=== PATIENT | female | born 1940 | race Caucasian/White ===

== ENCOUNTER 2016-11-20 12:25 | Inpatient (IN) | payer MEDICARE, OTHER ==
[~2016-11-20] VITALS: Ht 172.7 cm; Wt 79.5 kg
--- OUTSIDE RECORDS SUMMARY | 2016-11-20 12:29 | XMS REPORT ---
Author Author Corey Schaefer Organization [facility] Address [address] [place] [address] Care Team Providers Care Construction Supervisor Name Role Phone Corey Schaefer Unavailable [phone] PROBLEMS Type Condition ICD9-CM Code [id number] Code Onset Dates Condition Status SNOMED Code Problem Mitral Regurgitation 424.0 Active 99299477 Problem Hyperlipidemia 272.4 Active 91909085 Problem Aortic valve insufficiency I35.1 Active 98271309 Problem Coronary Artery Disease 414.01 Active 50374587 Problem Pacemaker Z95.0 Active 834791799 Problem Hypertension, Benign 401.1 Active 15762079 Problem Sick sinus syndrome I49.5 Active 44715002 Problem Mitral valve regurgitation I34.0 Active 28659721 Problem Pulmonary hypertension I27.2 Active 51639673 Problem Atrial fibrillation I48.91 Active 04240336 Problem Chest pain R07.9 Active 60732387 Problem Atrial fibrillation 427.31 Active 72296641 Problem Chest pain 786.50 Active 88871627 Problem Tricuspid valve disorders, 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 709387087 Problem CAD (coronary artery disease) I25.10 Active 04810986 Problem Hyperlipidemia E78.5 Active 42782812 Problem Tricuspid valve regurgitation, nonrheumatic I36.1 Active 530905877 Problem Hypertension I10 Active 17297417 Problem 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 204595902 Problem Sick Sinus Syndrome 427.81 Active 58479673 Problem Aortic Valve Insufficiency 424.1 Active 00742651 Problem Pulmonary Hypertension, Chronic, Unspecified 416.9 Active 89529316 Problem Diastolic CHF I50.30 Active 119677744 Problem Edema R60.9 Active 35652779 Problem Edema, Lower Extremity Edema 782.3 Active 887906058 Problem CHF, Diastolic Heart Failure, Unspecified 428.30 Active 016278820 ALLERGIES Unknown Allergies SOCIAL HISTORY No smoking Hx information available PLAN OF CARE VITAL SIGNS MEDICATIONS Unknown Medications RESULTS No Results PROCEDURES No Known procedures IMMUNIZATIONS No Known Immunizations
--- OUTSIDE RECORDS SUMMARY | 2016-11-20 12:29 | XMS REPORT ---
Author Author Corey Schaefer Organization [employer] Address Unknown Phone Unavailable Care Team Providers Care Database Admin Name Role Phone Corey Schaefer CP Unavailable Allergies No Known Allergies Problems Problem Type Condition Code Onset Dates Condition Status Problem Mitral Regurgitation 424.0 Active Problem Edema R60.9 Active Problem Hyperlipidemia 272.4 Active Problem Aortic valve insufficiency I35.1 Active Problem Coronary Artery Disease 414.01 Active Problem Pacemaker Z95.0 Active Problem Pulmonary hypertension I27.2 Active Problem Sick sinus syndrome I49.5 Active Problem Chest pain R07.9 Active Problem Tricuspid valve regurgitation, nonrheumatic I36.1 Active Problem Chest pain 786.50 Active Problem Tricuspid valve disorders, 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 Problem Atrial fibrillation I48.91 Active Problem Hypertension, Benign 401.1 Active Problem Hyperlipidemia E78.5 Active Problem Mitral valve regurgitation I34.0 Active Problem Hypertension I10 Active Problem CAD (coronary artery disease) I25.10 Active Problem Pulmonary Hypertension, Chronic, Unspecified 416.9 Active Problem 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
--- OUTSIDE RECORDS SUMMARY | 2016-11-20 12:29 | XMS REPORT ---
Author Author Corey Schaefer Organization [employer] Address Unknown Phone Unavailable Care Team Providers Care Soccer Coach Name Role Phone Corey Schaefer CP Unavailable [...] Edema, Lower Extremity Edema 782.3 Active Medications Medication Code System Code Instructions Start Date End Date Status Dosage Furosemide [facility] [address]-02 80 MG Orally Twice a day 1 tablet Results No Known Results Summary Purpose [employer]ClinicalWorks Submission
--- OUTSIDE RECORDS SUMMARY | 2016-11-20 12:29 | XMS REPORT | Summary of Care ---
Author Author Mary Small D.O. Organization Unknown Address [address], [place] [address] Phone Unavailable Care Team Providers Care Critical Power Install Technician Name Role Phone Mary Small D.O. Unavailable Unavailable Unavailable Unavailable Functional Status Functional Status Health Issues* Name Dates Details Functional status health issues are not documented Status: Cognitive Status Health Issues* Name Dates Details Cognitive status health issues are not documented Status: Problems Name Dates Details Acute bronchitis (466.0, J20.9) Status: Active Medications Name Dates Details Guaifenesin-Codeine 100-10 MG/5ML Oral Syrup TAKE 1 TEASPOONFUL EVERY 4 TO 6 HOURS NEEDED FOR COUGH. Quantity: 1 Mary Small.Kimberly.* Started 20-Sep-2014 [id number] ML Bottle PredniSONE 10 MG Oral Tablet TAKE 6 TABLETS TODAY, THEN DECREASE BY 1 TABLET EACH DAY UNTIL GONE. * Quantity: 21 Refills: 0 Mary Small.Kimberly.* Started 20-Sep-2014 ActiveDoxycycline Monohydrate 100 MG Oral Tablet TAKE 1 TABLET EVERY 12 HOURS DAILY. * Quantity: 14 Refills: 0 Mary Small.Kimberly.* Started 20-Sep-2014 Active Allergies and Adverse Reactions Name Dates Details Allergy history not documented Status: Procedures Procedure Dates Details Procedures not documented Immunization Name Dates Details Immunizations not documented Social History Smoking Status* Unknown if ever smoked Vital Signs Date Test Result Details 20-Sep-2014 11:21 Temperature 97.6 f Status: Weight 146.2 lb Status: Results Date Description Value Details Results not documented Plan of Care Planned Observations* Name Dates Details Planned Goals not documented Goal Instructions * Instructions not documented Encounters Appointment; Mary Small Encounter Diagnosis: Problem not documented On 20-Sep-2014 11:20
--- OUTSIDE RECORDS SUMMARY | 2016-11-20 12:29 | XMS REPORT ---
Author Author Corey Schaefer [facility] Address Unknown Phone Unavailable Care Team Providers Care Composite Boat Builder Name Role Phone Corey Schaefer CP Unavailable Allergies, Adverse Reactions, Alerts Substance Reaction Event Type IV dye Info Not Available Drug Allergy Problems Problem Type Condition Code Onset Dates Condition Status Assessment Diastolic CHF I50.30 Active Assessment Edema R60.9 Active Assessment Hyperlipidemia E78.5 Active Assessment Pacemaker Z95.0 Active Assessment Mitral valve regurgitation I34.0 Active Assessment CAD (coronary artery disease) I25.10 Active Assessment Hypertension I10 Active Assessment Atrial fibrillation I48.91 Active Problem Mitral Regurgitation 424.0 Active Problem Edema [...] Instructions Start Date End Date Status Dosage Lipitor [facility] [address]-34 20 MG Orally Once a day 1 tablet Enalapril Maleate [facility] [address]-42 20 MG Orally Twice a day 1/2 tablet Hydralazine HCl [facility] [address]-52 25 MG Orally Twice a day 1 tablet Vitamin B-12 [facility] [address]-61 1000 MCG Orally Once a day 1 tablet Iron [facility] [address]87[address]990 325 (65 Fe) MG Orally Once a day 1 tablet Multivitamins [facility] [address]32 Orally Once a day 1 tablet Aspirin [facility] [address]-61 81mg Orally Once a day 1 tablet Coreg [facility] [address]-42 25 MG Orally Twice a day Mar 18, 2014 1 tablet with food Xarelto [facility] [address]-32 20 MG Orally Once a day 1 tablet with the evening meal Claritin [facility] [address]-68 10 MG Orally Once a day 1 tablet HydrOXYzine HCl [facility] [address]-81 25 MG Orally every 8 hrs 1 tablet as needed Furosemide [facility] [address]-40 40 MG Orally Twice a day Jul 07, 2015 1 tablet Potassium Chloride ER [facility] [address]-34 20 MEQ Orally Three times a day 1 tablet Amiodarone HCl [facility] [address]-10 200 MG Orally Twice a day x 1 week, then 1 po daily 1 tablet Procedures Procedure Coding System Code Date Office Visit, Est Pt., Level 3 CPT-4 13610 Aug 03, 2015 Ofc Program PM Dual, Staff CPT-4 56569 Aug 03, 2015 Vital Signs Date/Time: Aug 03, 2015 BMI 21.38 Index Weight 149 lbs Height 70 in Cardiac Monitoring Heart Rate 96 /min Oximetry 96 % Blood Pressure Diastolic 80 mm Hg Blood Pressure Systolic 96 mm Hg Results No Known Results Summary Purpose eClinicalWorks Submission
--- OUTSIDE RECORDS SUMMARY | 2016-11-20 12:29 | XMS REPORT ---
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 Problem Edema, Lower Extremity Edema 782.3 Active Assessment CHF, Diastolic Heart Failure, Unspecified 428.30 Active Problem Sick Sinus Syndrome 427.81 Active Problem CHF, Diastolic Heart Failure, Unspecified 428.30 Active Problem Aortic Valve Insufficiency 424.1 Active Problem Atrial fibrillation 427.31 Active Problem 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 Problem Pulmonary Hypertension, Chronic, Unspecified 416.9 Active Assessment Sick Sinus Syndrome 427.81 Active Assessment Hyperlipidemia 272.4 Active Assessment Edema, Lower Extremity Edema 782.3 Active Assessment 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 Assessment Atrial fibrillation 427.31 Active Problem Mitral Regurgitation 424.0 Active Assessment Coronary Artery Disease 414.01 Active Problem Hyperlipidemia 272.4 Active Assessment Hypertension, Benign 401.1 Active Problem Coronary Artery Disease 414.01 Active Medications Medication Code System Code Instructions Start Date End Date Status Dosage Coreg [facility] [address]-39 25 MG Orally Twice a day Mar 18, 2014 1 tablet with food Aspirin [facility] [address]-12 81mg Orally Once a day 1 tablet Demadex [facility] [address]-56 20 MG Orally Once a day Aug 06, 2014 2 tablets Vitamin C [facility] 147[address]96 500 MG Orally Once a day 1 tablet Lipitor [facility] [address]-08 20 MG Orally Once a day 1 tablet Xarelto [facility] [address]-15 20 MG Orally Once a day 1 tablet with the evening meal Enalapril Maleate [facility] [address]-20 20 MG Orally Twice a day 1 tablet Hydralazine HCl [facility] [address]-30 25 MG Orally Twice a day 1 tablet Multivitamins [facility] 78726-[address]91 Orally Once a day 1 tablet HydrOXYzine HCl [facility] [address]-97 25 MG Orally every 8 hrs 1 tablet as needed Procedures Procedure Coding System Code Date Office Visit, Est Pt., Level 4 CPT-4 81206 Mar 23, 2015 Ofc Program PM Dual, Staff CPT-4 22356 Mar 23, 2015 Vital Signs Date/Time: Mar 23, 2015 BMI 23.39 Index Weight 163 lbs Height 70 in Cardiac Monitoring Heart Rate 89 /min Oximetry 94% % Blood Pressure Diastolic 68 mm Hg Blood Pressure Systolic 112 mm Hg Results No Known Results Summary Purpose eClinicalWorks Submission
--- OUTSIDE RECORDS SUMMARY | 2016-11-20 12:29 | XMS REPORT ---
Author Author Corey Schaefer Organization [employer] Address Unknown Phone Unavailable Care Team Providers Care Metal Sash Setter Name Role Phone Corey Schaefer CP Unavailable [...]
--- OUTSIDE RECORDS SUMMARY | 2016-11-20 12:29 | XMS REPORT | Referral Summary ---
Author Author [facility] Organization [facility] Address Unknown Phone Unavailable Care Team Providers Care Flat Knitter Helper Name Role Phone Kelly Marshall Primary Care Physician [phone] Encounter VC Date(s): 09/03/15 - 09/03/15 [facility] [address] [place] [address] Discharge Diagnosis: Head contusion Discharge Diagnosis: Rib fracture Discharge Diagnosis: Shoulder injury Discharge Disposition: -Home or Self Care Attending Physician: Ancelmo Lerma MD Admitting Physician: Ancelmo Lerma MD Vital Signs Most recent to 1 oldest [Reference Range]: Temperature Oral 36.6 degC [35.8-37.3 degC] (09/03/15 10:37 AM) Apical Heart Rate 85 bpm [60-100 bpm] (09/03/15 10:37 AM) Respiratory Rate 22 br/min [14-20 br/min] *HI* (09/03/15 10:37 AM) Blood Pressure 144/94 mmHg [90-140/60-90 mmHg] *HI* (09/03/15 10:37 AM) SpO2 97 % (09/03/15 10:37 AM) Problem List Condition Effective Dates Status Health Status Informant Atrial Active patient fibrillation(Confirm ed) Pacemaker(Confirmed) Active patient Hypertension(Confirm Active patient ed) Allergies, Adverse Reactions, Alerts Substance Reaction Severity Status Bumex Itching Active iodine Tongue swelling Active Medications atorvastatin 20 mg oral tablet 0 Refill(s) Start Date: 09/03/15 Status: Ordered carvedilol 25 mg oral tablet 0 Refill(s) Start Date: 09/03/15 Status: Ordered enalapril 20 mg oral tablet 0 Refill(s) Start Date: 09/03/15 Status: Ordered furosemide 80 mg oral tablet 0 Refill(s) Start Date: 09/03/15 Status: Ordered Percocet 5/325 oral tablet 1 tabs, Oral, q6hr, as needed for pain, # 30 tabs, 0 Refill(s) Start Date: 09/03/15 Status: Ordered Xarelto 20 mg oral tablet 20 mg 1 tabs, Oral, qPM, # 30 tabs, 0 Refill(s) Start Date: 09/03/15 Status: Ordered Xarelto 20 mg oral tablet 20 mg 1 tabs, Oral, qPM, # 30 tabs, 0 Refill(s) Start Date: 09/03/15 Status: Ordered Results No data available for this section Immunizations Vaccine Date Refusal Reason tetanus/diphth/pertuss (Tdap) adult/adol 09/03/15 Procedures No data available for this section Social History Social History Type Response Smoking Status Never smoker Assessment and Plan No data available for this section
--- OUTSIDE RECORDS SUMMARY | 2016-11-20 12:29 | XMS REPORT ---
Author Author Corey Schaefer Organization [employer] Address Unknown Phone Unavailable Care Team Providers Care Printing Specialist Name Role Phone Corey Schaefer CP Unavailable [...] Start Date End Date Status Dosage Furosemide [facility] [id number] 80 Orally Twice a day 1 tablet Results No Known Results Summary Purpose eClinicalWorks Submission
--- OUTSIDE RECORDS SUMMARY | 2016-11-20 12:29 | XMS REPORT ---
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 Problem Edema, Lower Extremity Edema 782.3 Active Problem Sick Sinus Syndrome 427.81 Active Problem CHF, Diastolic Heart Failure, Unspecified 428.30 Active Problem Aortic Valve Insufficiency 424.1 Active Problem Atrial fibrillation 427.31 Active Problem 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 Problem Pulmonary Hypertension, Chronic, Unspecified 416.9 Active Assessment 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 Assessment CHF, Diastolic Heart Failure, Unspecified 428.30 Active Problem Mitral Regurgitation 424.0 Active Assessment Aortic Valve Insufficiency 424.1 Active Problem Hyperlipidemia 272.4 Active Assessment Edema, Lower Extremity Edema 782.3 Active Problem Coronary Artery Disease 414.01 Active Medications Medication Code System Code Instructions Start Date End Date Status Dosage Coreg [facility] [address]-46 25 MG Orally Twice a day Mar 18, 2014 1 tablet with food Multivitamins [facility] [address] Orally Once a day 1 tablet Vitamin B-12 [facility] [address]-63 1000 MCG Orally Once a day 1 tablet Xarelto [facility] [address]-06 20 MG Orally Once a day 1 tablet with the evening meal Enalapril Maleate [facility] [address]-47 20 MG Orally Twice a day 1 tablet Furosemide [facility] [address]-37 80 MG Orally Twice a day Jul 07, 2015 1 tablet Aspirin [facility] [address]-09 81mg Orally Once a day 1 tablet Lipitor [facility] [address]-95 20 MG Orally Once a day 1 tablet HydrOXYzine HCl [facility] [address]-42 25 MG Orally every 8 hrs 1 tablet as needed Procedures Procedure Coding System Code Date Office Visit, Est Pt., Level 3 CPT-4 83333 Jul 07, 2015 Ofc Program PM Dual, Staff CPT-4 86659 Jul 07, 2015 Vital Signs Date/Time: Jul 07, 2015 BMI 23.96 Index Weight 167 lbs Height 70 in Cardiac Monitoring Heart Rate 92 /min Oximetry 98% % Blood Pressure Diastolic 80 mm Hg Blood Pressure Systolic 122 mm Hg Results No Known Results Summary Purpose [employer]ClinicalWorks Submission
--- OUTSIDE RECORDS SUMMARY | 2016-11-20 12:29 | XMS REPORT ---
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 Active Assessment Sick Sinus Syndrome 427.81 Active Assessment CHF, Diastolic Heart Failure, Unspecified 428.30 Active Assessment Atrial fibrillation 427.31 Active Problem Mitral Regurgitation 424.0 Active Assessment Coronary Artery Disease 414.01 Active Problem Hyperlipidemia 272.4 Active Assessment Hypertension, Benign 401.1 Active Problem Coronary Artery Disease 414.01 Active Medications Medication Code System Code Instructions Start Date End Date Status Dosage Vitamin B-12 [facility] [address]-39 1000 MCG Orally Once a day 1 tablet HydrOXYzine HCl [facility] [address]-35 25 MG Orally every 8 hrs 1 tablet as needed Aspirin [facility] [address]-74 81mg Orally Once a day 1 tablet Coreg [facility] [address]-16 25 MG Orally Twice a day Mar 18, 2014 1 tablet with food Bumetanide [facility] [address]-89 1 MG Orally Twice a day 2 tab in am, 1 tab in pm Multivitamins [facility] 42[address]-30587 Orally Once a day 1 tablet Lipitor [facility] [address]-70 20 MG Orally Once a day 1 tablet Xarelto [facility] [address]-83 20 MG Orally Once a day 1 tablet with the evening meal Enalapril Maleate [facility] [address]-95 20 MG Orally Twice a day 1 tablet Hydralazine HCl [facility] [address]-70 25 MG Orally Twice a day 1 tablet Vitamin C [facility] 28421-[address]27 500 MG Orally Once a day 1 tablet Procedures Procedure Coding System Code Date Office Visit, Est Pt., Level 4 CPT-4 91937 Apr 04, 2015 Vital Signs Date/Time: Apr 04, 2015 BMI 22.38 Index Weight 156 lbs Height 70 in Cardiac Monitoring Heart Rate 71 /min Oximetry 97% % Blood Pressure Diastolic 80 mm Hg Blood Pressure Systolic 112 mm Hg Results No Known Results Summary Purpose eClinicalWorks Submission
--- OUTSIDE RECORDS SUMMARY | 2016-11-20 12:29 | XMS REPORT | Referral Summary ---
Author Author [facility] Organization [facility] Address Unknown Phone Unavailable Care Team Providers Care Director Home Health Name Role Phone Kelly Marshall Primary Care Physician [phone] Encounter VC Date(s): 06/23/16 - 06/23/16 [facility] [address] [place] [address] Discharge Diagnosis: Foot sprain Discharge Disposition: 01-Home or Self Care Attending Physician: Maria Eugenia Borja MD Admitting Physician: Maria Eugenia Borja MD Vital Signs Most recent to 1 oldest [Reference Range]: Respiratory Rate 18 br/min [14-20 br/min] (06/23/16 10:16 AM) Problem List Condition Effective Dates Status Health Status Informant Atrial Active patient fibrillation(Confirm ed) Pacemaker(Confirmed) Active patient Hypertension(Confirm Active patient ed) Allergies, Adverse Reactions, Alerts Substance Reaction Severity Status Bumex Itching Active iodine Tongue swelling.... Active Medications atorvastatin 20 mg oral tablet [...]
--- OUTSIDE RECORDS SUMMARY | 2016-11-20 12:29 | XMS REPORT ---
Author Author Corey Schaefer Organization [employer] Address Unknown Phone Unavailable Care Team Providers Care Ethnic Studies Professor Name Role Phone Corey Schaefer CP Unavailable Allergies No Known Allergies Problems Problem Type Condition Code Onset Dates Condition Status Assessment Hypertension I10 Active Problem Mitral Regurgitation 424.0 Active Problem [...] Instructions Start Date End Date Status Dosage Enalapril Maleate [facility] [address]-37 20 MG Orally Twice a day 1 tablet Results No Known Results Summary Purpose [employer]ClinicalWorks Submission
[2016-11-20] MEDS ORDERED: ONDANSETRON 4mg/2ml INJECTION IV PRN (12:30)
[2016-11-20] MEDS ORDERED: OXYCODONE I.R. 5 MG TABLET PO PRN (12:30)
[2016-11-20] MEDS ORDERED: HYDROMORPHONE 2mg/ml INJECTION IV PRN (12:30)
--- NOTE | 2016-11-20 12:30 | NUR ---
ARRIVAL TO FLOOR PT ARRIVED TO THE FLOOR AT THIS TIME, VIA WHEELCHAIR. PT ALERT AND ORIENTED X3. ABLE TO TRANSFER SELF FROM WHEELCHAIR TO BED WITH 2 PERSON ASSIST. PT ACCOMPANIED BY HER , ANGÉLICA. PT REPORTS TAKING 2 PERCOCET 5-325MG AT 1115. WILL CONTINUE TO ADMIT AND MONITOR PT.
--- OUTSIDE RECORDS SUMMARY | 2016-11-20 12:30 | XMS REPORT | Summary of Care ---
Author Author Felipe MAYOSera Organization Unknown Address [address] [phone] Phone Unavailable Care Team Providers Care Painter Maintenance Name Role Phone Leonilaalma MARIA ESTHER Sera Unavailable Unavailable No Assigned PCP-Pt Confirmed PP Unavailable Unavailable Unavailable Functional Status Functional Status Health Issues* Name Dates Details Functional status health issues are not documented Status: Cognitive Status Health Issues* Name Dates Details Cognitive status health issues are not documented Status: Problems Name Dates Details Acute bronchitis (466.0, J20.9) Status: Active Acute upper respiratory infection (465.9, J06.9) Status: Active Medications Name Dates Details Azithromycin 500 MG Oral Tablet TAKE 1 TABLET DAILY. Quantity: 5 BenjiSera baez APRN* Started 04-Aug-2015 Ended 09-Aug-2015 ActiveAmiodarone HCl - 400 MG Oral Tablet TAKE TABLET Daily * Refills: 0 * Started 04-Aug-2015 ActiveAspirin 81 MG Oral Tablet TAKE 1 TABLET DAILY. * Refills: 0 * Started 04-Aug-2015 ActiveAtorvastatin Calcium 20 MG Oral Tablet TAKE 1 TABLET DAILY AT BEDTIME. * Refills: 0 * Started 04-Aug-2015 ActiveCarvedilol 25 MG Oral Tablet TAKE 1 TABLET TWICE DAILY WITH MEALS. * Refills: 0 * Started 04-Aug-2015 ActiveEnalapril Maleate 20 MG Oral Tablet TAKE 1 TABLET TWICE DAILY. * Refills: 0 * Started 04-Aug-2015 ActiveFurosemide 40 MG Oral Tablet TAKE 1 TABLET TWICE DAILY. * Refills: 0 * Started 04-Aug-2015 ActiveHydrOXYzine HCl - 25 MG Oral Tablet TAKE 1 TABLET Every 8 hours PRN * Refills: 0 * Started 04-Aug-2015 ActiveLoratadine 10 MG Oral Tablet TAKE 1 TABLET DAILY. * Refills: 0 * Started 04-Aug-2015 ActivePotassium Chloride ER 20 MEQ Oral Tablet Extended Release TAKE 1 TABLET 3 times daily * Refills: 0 * Started 04-Aug-2015 ActiveXarelto 20 MG Oral Tablet Take 1 tablet daily * Refills: 0 * Started 04-Aug-2015 Active Allergies and Adverse Reactions Name Dates Details Iodinated Contrast Media Status: Active Sulfa Drugs Status: Active Procedures Procedure Dates Details Procedures not documented Immunization Name Dates Details Immunizations not documented Family History Father* Name Dates Details Family history of abdominal aortic aneurysm (V17.49, Z82.49) Status: Active Social History Name Dates Details Smoking Status* Never smoker Vital Signs Date Test Result Details 04-Aug-2015 14:38 BP Systolic 117 mm[Hg] Status: BP Diastolic 70 mm[Hg] Status: Temperature 98.1 f Status: Heart Rate 100 /min Status: Weight 152 lb Status: O2 SAT 98 % Status: Results Date Description Value Details Results not documented Plan of Care Planned Observations* Name Dates Details Planned Goals not documented Goal Instructions * Instructions not documented Encounters Appointment; Sera Wang Encounter Diagnosis: Problem not documented On 04-Aug-2015 14:05 Appointment; Mary Small Encounter Diagnosis: Problem not documented On 20-Sep-2014 11:20
--- OUTSIDE RECORDS SUMMARY | 2016-11-20 12:30 | XMS REPORT ---
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 Name Role Phone Corey Schaefer CP Unavailable Allergies, Adverse Reactions, Alerts Substance Reaction Event Type IV dye Info Not Available Drug Allergy Problems Problem Type Condition Code Onset Dates Condition Status Assessment Diastolic CHF I50.30 Active Assessment Edema R60.9 Active Assessment Pacemaker Z95.0 Active Assessment CAD (coronary artery disease) I25.10 [...] Date End Date Status Dosage Vitamin B-12 [facility] [address]-30 1000 MCG Orally Once a day 1 tablet Enalapril Maleate [facility] [address]-77 20 MG Orally Twice a day 1 tablet Aspirin [facility] [address]-05 81mg Orally Once a day 1 tablet Multivitamins [facility] [address]7979[address] Orally Once a day 1 tablet HydrOXYzine HCl [facility] [address]-56 25 MG Orally every 8 hrs 1 tablet as needed Xarelto [facility] [address]-23 20 MG Orally Once a day 1 tablet with the evening meal Furosemide [facility] [address]-96 80 MG Orally Twice a day Jul 07, 2015 1 tablet Lipitor [facility] [address]-33 20 MG Orally Once a day 1 tablet Claritin [facility] [address]-03 10 MG Orally Once a day 1 tablet Coreg [facility] [address]-79 25 MG Orally Twice a day Mar 18, 2014 1 tablet with food Procedures Procedure Coding System Code Date Office Visit, Est Pt., Level 3 CPT-4 76858 Jul 14, 2015 Ofc Program PM Dual, Staff CPT-4 08588 Jul 14, 2015 Vital Signs Date/Time: Jul 14, 2015 BMI 23.96 Index Weight 167 lbs Height 70 in Cardiac Monitoring Heart Rate 93 /min Oximetry 98% % Blood Pressure Diastolic 68 mm Hg Blood Pressure Systolic 112 mm Hg Results No Known Results Summary Purpose eClinicalWorks Submission
--- OUTSIDE RECORDS SUMMARY | 2016-11-20 12:30 | XMS REPORT ---
Author Author Corey Schaefer Organization [employer] Address Unknown Phone Unavailable Care Team Providers Care Water Manager Name Role Phone Corey Schaefer CP Unavailable [...]
--- OUTSIDE RECORDS SUMMARY | 2016-11-20 12:30 | XMS REPORT ---
Author Author Corey Schaefer Organization [employer] Address Unknown Phone Unavailable Care Team Providers Care Jigger Crown Pouncing Machine Operator Name Role Phone Corey Schaefer CP Unavailable Allergies No Known Allergies Problems Problem Type Condition ICD-9 Code Onset [...] Pulmonary Hypertension, Chronic, Unspecified 416.9 Active Problem Mitral Regurgitation 424.0 Active Problem Hyperlipidemia 272.4 Active Problem Coronary Artery Disease 414.01 Active Medications No Known Medications Results No Known Results Summary Purpose eClinicalWorks Submission
[2016-11-20 12:44] VITALS: Ht 172.7 cm; Wt 79.5 kg
[2016-11-20 12:56] VITALS: BP 114/65; PULSE 72; RESP 18; TEMP 96.1; O2SAT 98
--- NOTE | 2016-11-20 13:08 | HPF ---
CHIEF COMPLAINT 1. Right distal radius fracture. 2. Right hip pain. HISTORY OF PRESENT ILLNESS Ms. Jacques is a very pleasant 76-year-old female seen today as a new patient for injuries she sustained on 11/17/2016. She had a fall at home. She was seen at [facility] on the . X-rays showed a comminuted intraarticular right distal radius fracture in satisfactory alignment. She was also complaining of right hip and groin pain. Pelvis x-rays were taken. The patient was told she had a hip contusion. She has continued to have severe pain in her right groin and hip. She did have preexisting pain in the right hip prior to her fall. She has also had moderate pain in the right wrist. She was placed in an ulnar-sided splint. She has iced a couple of times to her wrist. She has had difficulty ambulating and getting around. Her has poor health and back issues and is having difficulty getting her up and moving around as well. Pain is described as severe. It is sharp both in the wrist and the hip. It is worse with any movement. It is aggravated by weightbearing, walking. She denies numbness or tingling to the hand. Complains of weakness in the leg. Denies back pain. She has been taking oxycodone/APAP for pain at home. Complains of sensation of giving way in and weakness with walking and fear of falling. She does have atrial fibrillation and a pacemaker. She is on Xarelto for this, but did not take it last night. REVIEW OF SYSTEMS Constitutional: Negative for chills, fever, fatigue, malaise, weight loss. HEENT: Negative for headache, vertigo. Respiratory: Negative for cough, SOA, recent infections, wheezing. Cardiovascular: Negative for chest pain, palpitations, leg swelling, syncope. Gastrointestinal: Positive for constipation. Negative for abdominal pain, diarrhea, heartburn, nausea, vomiting. Skin: Negative for skin infections, rash. Neurological: Negative for paresthesia, seizures. Psychiatric: Negative for anxiety, depression. Hematologic/Lymphatic: Positive for easy bleeding and bruising. Musculoskeletal: Negative except as in HPI. PAST MEDICAL HISTORY A-Fib. Pacemaker status. Coronary artery disease requiring heart stenting. Hypertension. MEDICATIONS Xarelto. Vitamin B12. Oxycodone/APAP 5/325. Hydroxyzine. Furosemide. Enalapril. Carvedilol. Aspirin. Amiodarone. ALLERGIES No known drug allergies. SURGICAL HISTORY Right shoulder surgery. SOCIAL HISTORY The patient is a nonsmoker, nondrinker. Denies illicit drug use. FAMILY HISTORY Significant for mother and sister with breast cancer. Mother with hypertension. PHYSICAL EXAMINATION Height 5 feet 8 inches. Weight 160. Blood pressure 99/54. Pulse 74. Constitutional: Well developed, well-nourished. Psychiatric: Alert and oriented x 3, NAD, of normal mood and affect. Skin: No rash or abnormal lesions in bilateral affected extremities. Vascular: 2+ palpable pulses with brisk capillary refill all digits. Neuro: Normal sensation to light touch in bilateral affected extremities. MSK: Gait: Severely antalgic gait favoring the right side. She is primarily in a wheelchair. Affected extremities: Right lower and right upper. Inspection: Inspection of the patient's right wrist reveals moderate swelling and bruising. No skin laceration. Right hip and groin show no warmth, erythema or ecchymosis. Bruising over the lateral hip. Palpation: Tenderness over the greater trochanter and lateral hip. Also tenderness of the right side of the symphysis pubis. Wrist is tender, both the ulna and the distal radius. No hand or elbow tenderness. Range of motion: Normal knee range of motion. Hip range of motion is limited on internal rotation and this causes some discomfort in the groin. Wrist range of motion not assessed secondary to known fracture. 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 Normal right lower extremity strength. Contralateral Extremities: Complete examination was performed. Skin is intact. No swelling, no tenderness to palpation. Normal ROM and normal strength and stability were noted. IMAGING X-ray type: Two-view right wrist pre and post splint application. Pre splint application shows a comminuted distal radius fracture with intraarticular extension. There is dorsal comminution. She has mild loss of radial inclination and neutral volar tilt. Nondisplaced ulnar styloid fracture. Post splint application x-rays show similar with mildly improved reduction and position of dorsal comminuted fragments. Impression: Closed comminuted left distal radius fracture that is intraarticular with nondisplaced ulnar styloid fracture. X-ray type: Three-view pelvis. Interpretation: Three views of the pelvis were obtained. There is fracture of the superior and inferior pubic rami with minimal displacement. Note is made of moderate primary osteoarthritic change of the right hip with spurring, joint space narrowing and subchondral sclerosis. No evidence of femoral neck or intertrochanteric hip fracture. Impression: Closed right superior and inferior pubic rami fractures with moderate primary hip osteoarthritis. ASSESSMENT 1. Closed mildly displaced comminuted intraarticular distal radius fracture with nondisplaced ulnar styloid fracture. 1. Closed right superior and inferior pubic rami fracture. 2. Right primary hip osteoarthritis. PLAN I discussed the findings today with the patient regarding the diagnosis, imaging, history, and physical exam. The diagnosis was discussed utilizing models and diagrams. The natural history of the diagnosis was discussed. Options for treatment were reviewed. The patient is having a fair amount of difficulty getting around at home. Her is having difficulty helping her. She is in a fair amount of pain. I recommended admission at this time for pain control and beginning working with therapy for ambulation. She will be weightbearing as tolerated but will be nonweightbearing on the right upper extremity. Will okay the use of a platform walker. I want ice and elevation to the right wrist. Splint is not to be removed. Will plan to start oral pain medication with IV pain medication available. Will consult Medicine for evaluation and monitoring of her A-Fib, though it seems to be stable. Diet will be as tolerated and normal. Will have Care Coordination see her to discuss possibility of Inpatient Rehab or the like. Will plan to repeat x-rays of the wrist in one week. If any further displacement, consideration would be made for ORIF. Will resume home medications during admission as well. ANDREA
[2016-11-20 13:16] LABS: BASOPHILS % (AUTO) 0.7 % (0-2); EOSINOPHILS # (AUTO) 0.1 T/MM3 (0-0.5); EOSINOPHILS % (AUTO) 3.1 % (0-4); HCT - HEMATOCRIT 35.6 % (36-46); HGB - HEMOGLOBIN 11.3 GM/DL (12-16); LYMPHOCYTES # (AUTO) 1.2 T/MM3 (1-4.8); LYMPHOCYTES % (AUTO) 25.8 % (23-45); MEAN CORPUSCULAR HGB 27.6 UUG (26-34); MEAN CORPUSCULAR HGB CONC(MCHC 31.7 GM/DL (31-37); MEAN PLATELET VOLUME 10.4 UM3 (9.4-12.4); MONOCYTES # (AUTO) 0.6 T/MM3 (0-0.8); MONOCYTES % (AUTO) 12.1 % (0-9.0); NEUTROPHILS #(AUTO)-ABSOLUTE 2.7 T/MM3 (1.8-7.7); NEUTROPHILS % (AUTO) 58.3 % (33-66); RED BLOOD COUNT 4.09 M/MM3 (4.00-5.20); WBC - WHITE BLOOD COUNT 4.5 T/MM3 (4.5-11.0)
[2016-11-20 13:28] LABS: ALBUMIN/GLOBULIN RATIO 1.3 RATIO (1.1-2.2); ALKALINE PHOSPHATASE 177 U/L (38-126); ALT (SGPT) 26 U/L (9-52); ANION GAP 15 MEQ/L (5-15); AST (SGOT) 32 U/L (14-36); BUN/CREATININE RATIO 24 RATIO (6-26); CALCIUM 9.1 MG/DL (8.4-10.2); CHLORIDE 98 MEQ/L (98-107); CO2 - CARBON DIOXIDE 30 MEQ/L (22-30); CREATININE 1.6 MG/DL (0.7-1.2); GLOMERULAR FILTRATION RATE 31; GLUCOSE 97 MG/DL (65-110); POTASSIUM 4.5 MEQ/L (3.6-5); SODIUM 143 MEQ/L (134-144); TOTAL PROTEIN 7.1 G/DL (6.3-8.2)
[2016-11-20] MEDS: NORMAL SALINE 1,000 ML IV SCH (13:55)
[2016-11-20] MEDS ORDERED: RIVA20TA PO (14:04)
[2016-11-20] MEDS ORDERED: AMIO200T2 PO (14:09)
[2016-11-20] MEDS ORDERED: ENAL20TA PO (14:09)
[2016-11-20] MEDS ORDERED: FURO80TA3 PO (14:09)
[2016-11-20] MEDS ORDERED: ASPI-557 PO (14:09)
[2016-11-20] MEDS ORDERED: HYDR25TA85 PO (14:09)
[2016-11-20] MEDS ORDERED: CYAN50003 PO (14:09)
[2016-11-20] MEDS ORDERED: OXYC-541 PO (14:09)
[2016-11-20] MEDS ORDERED: CARV25TA2 PO (14:09)
[2016-11-20] MEDS ORDERED: ZINC50TA39 PO (14:18)
[2016-11-20] MEDS ORDERED: CHOL500051 PO (14:18)
[2016-11-20 14:50] VITALS: RESP 18
[2016-11-20] MEDS: ACETAMINOPHEN 325 MG TABLET PO SCH ×2 (15:22→21:21)
--- NOTE | 2016-11-20 15:52 | CONSPD ---
Consultation Info Date DATE: 11/20/16 TIME: 15:[address] Cotton Reason for Consultation: Bone health evaluation Impression/Recommendation Impression/Recommendation: (1) Osteopenia Status: Chronic Recommendation: Start calcium. will check with Dr Marshall about her DEXA scan Ortho HPI HPI Elements HPI Fell at home while taking care of cats. Also fractured ribs about a year ago doing the same thing Past Medical History Adult Current Medications Amiodarone HCl (Amiodarone HCl) 200 Mg Tablet, 200 MG PO DAILY, (Reported) Last Taken: Unknown Dose on 11/20/16 0800 Aspirin (Aspir 81) 81 Mg Tablet.dr , 1 TAB PO DAILY, (Reported) Last Taken: Unknown Dose on 11/20/16 0800 Carvedilol (Carvedilol) 25 Mg Tablet, 1 TAB PO BID, (Reported) BEST WITH FOOD. Last Taken: Unknown Dose on 11/20/16 0800 Cholecalciferol (Vitamin D3) ( Vitamin D) 5,000 Unit Capsule, 1 TAB PO DAILY, (Reported) Last Taken: Unknown Dose on 11/19/16 0800 Cyanocobalamin (Vitamin B-12) ( Vitamin B-12) 5,000 Mcg Tab.rapdis, 10 TAB PO DAILY, (Reported) Last Taken: Unknown Dose on 11/20/16 0800 Enalapril Maleate (Enalapril Maleate) 20 Mg Tablet, 1 TAB PO BID, (Reported) Last Taken: Unknown Dose on 11/20/16 0800 Furosemide (Furosemide) 80 Mg Tablet, 1 TAB PO BID, (Reported) Last Taken: Unknown Dose on 11/20/16 0800 Hydroxyzine HCl (Hydroxyzine HCl) 25 Mg Tablet, 1 TAB PO PM, (Reported) Last Taken: Unknown Dose on 11/19/16 1700 Oxycodone HCl/Acetaminophen ( Oxycodone-Acetaminophen 5-325) 5-325 Tablet, 1-2 TAB PO Q4H PRN for PAIN, ( Reported) Last Taken: Unknown Dose on 11/20/16 1115 Rivaroxaban (Xarelto) 20 Mg Tablet , 1 TAB PO DAILY, (Reported) Last Taken: Unknown Dose on 11/18/16 2200 Zinc (Zinc) 50 Mg Tablet, 50 MG PO DAILY, (Reported) Last Taken: Unknown Dose on 11/20/16 0800 Allergies Allergies: Coded Allergies: No Known Drug Allergies (Verified Allergy, Unknown, 11/20/16) Vaccines No Social History Advance Directives: No DPOA for Healthcare Only Physical Exam Laboratory Laboratory Tests Test 11/20/16 13:01 White Blood Count 4.5T/MM3 Red Blood Count 4.09M/MM3 Hemoglobin 11.3GM/DL Hematocrit 35.6% Mean Corpuscular Volume 87.0UM3 Mean Corpuscular Hemoglobin 27.6UUG Mean Corpuscular Hemoglobin Concent 31.7GM/DL RDW Standard Deviation 41.9FL Platelet Count 200T/MM3 Mean Platelet Volume 10.4UM3 Immature Granulocyte % (Auto) 0.0% Neutrophils (%) (Auto) 58.3% Lymphocytes (%) (Auto) 25.8% Monocytes (%) (Auto) 12.1% Eosinophils (%) (Auto) 3.1% Basophils (%) (Auto) 0.7% Absolute Immature Granulocyte (auto 0.00T/MM3 Absolute Neutrophils (auto) 2.7T/MM3 Absolute Lymphocytes (auto) 1.2T/MM3 Absolute Monocytes (auto) 0.6T/MM3 Absolute Eosinophils (auto) 0.1T/MM3 Absolute Basophils (auto) 0.0T/MM3 Turbidity < 20 Sodium Level 143MEQ/L Potassium Level 4.5MEQ/L Chloride Level 98MEQ/L Carbon Dioxide Level 30MEQ/L Anion Gap 15MEQ/L Blood Urea Nitrogen 38.0MG/DL Creatinine 1.6MG/DL Glomerular Filtration Rate Calc 31 BUN/Creatinine Ratio 24RATIO Glucose Level 97MG/DL Calculated Osmolality 284MOSM/KG Calcium Level 9.1MG/DL Total Bilirubin 1.80MG/DL Icterus Index < 2 Aspartate Amino Transf (AST/SGOT) 32U/L Alanine Aminotransferase (ALT/SGPT) 26U/L Alkaline Phosphatase 177U/L Total Protein 7.1G/DL Albumin 4.0G/DL Globulin 3.1G/DL Albumin/Globulin Ratio 1.3RATIO 25-Hydroxy Vitamin D Total Pending 25-Hydroxy Vitamin D2 Pending 25-Hydroxy Vitamin D3 Pending Chemistry Specimen Hemolysis < 15 Case Report- BMD Demographics Date of Initial Screening: Nov 20, 2016 Age 76 Gender: Female Race White Height (Feet): 5 Height (Inches): 8.00 Weight (Kilograms): 76.800 Site of Current Fracture Upper Limb: wrist (distal radius) Axial: pelvic ring Fracture History History of fracture age 51 or: Yes Fracture History: ribs Age at time of fractures 75 Risk Factors History of Rheumatoid Arthriti: No Secondary Osteoporosis d/t con: No Medication Use Nutritional Supplements: vitamin d Treatment/Counseling Calcium 1200 mg/day (in divide: yes Vitamin D at least 800-1000 IU: yes Regular Weight Bearing and Mus: yes Fall Prevention: yes Smoking Cessation: yes Alcohol Comsumption (no more t: yes Pharmacologic Treatment Recomend Pharmacologic Therapy: No Therapy not recommended due to: bone health assessment ongoing Pharmacologic Therapy Initiate: No Reason Not Initiating Therapy: tx planned for near future Bone Mineral Density Testing Was BMD Testing Recommended?: No BMD Testing: N/A(BMD performed within past 2yrs) Written Communication Was pt provided with a letter: Yes Letter Provided to pts PCP?: Yes Discharge Status: routine discharge to home Additional Information Comments Patient had DEXA by Dr Marshall within the recent past. Will check and see if I can get the results LANA RODRÍGUEZ MD Nov 20, 2016 15:50
[2016-11-20] MEDS ORDERED: METOCLOPRAMIDE 10mg/2ml INJECTION IV PRN (16:00)
[2016-11-20] MEDS ORDERED: MILK OF MAGNESIA 30 ML SUSP PO PRN (16:00)
[2016-11-20] MEDS ORDERED: BISACODYL 10 MG SUPPOSITORY RECTALLY PRN (16:00)
[2016-11-20] MEDS ORDERED: ACETAMINOPHEN 325 MG TABLET PO PRN (16:00)
--- NOTE | 2016-11-20 16:11 | CONSPD ---
MILDREDDEMETRIO Rashida PIECE MAKER 11/20/16 1522: Consultation Info Date DATE: 11/20/16 TIME: 15:19 Date of Consultation: Nov 20, 2016 Attending Physician: Admitting - Dr. Cotton Hospitalist - Dr. Metcalf Reason for Consultation: Medical management - heart disease HPI - Adult Date DATE: 11/20/16 TIME: 15:19 General Chief Complaint: Right wrist fx and pelvic pain History of Present Illness Henna Jacques is a 76 year old woman who fell at home on 11/17/16. She states the sole of her shoe was caught on the patio, and she fell backwards onto her right hip and elbow. She hit her head on the patio but did not lose consciousness and never developed headache, visual changes, or nausea/vomiting to suggest concussion. She was evaluated at [facility] in [place], and dx with rigth wrist fx and hip contusion. A splint was applied to her right wrist and she was discharged home. She has been using a crutch to get around at home, but is weak and wobbly. Her right leg has been weak and she's had a terribly painful time bearing weight on her leg. Her 80-year old has been trying to help her but he has back problems so it has been very difficult for him. She' s been taking oxycodone which is making her very sleepy. She has also been constipated since starting her pain medication - last BM was 11/16/16. ROS was also positive for feeling chilly, but she thinks it's because she's become so sweaty from exertion and pain and as soon as she sits back down she becomes cool. She saw Dr. Cotton in f/u on 11/20/16 and x-rays were repeated. She was dx with right sided pelvic fx, and she was admitted to [facility]. The hospitalist service was consulted for mgt of her heart disease. Past Medical History Past Medical History Patient's Medical History: (1) CAD (coronary artery disease) (2) Atrial fibrillation (3) CHF (congestive heart failure) (4) HTN (hypertension) Surgical History Patient's Surgical History: PPM Heart catheterization with stent Ablation for A-fib - unsuccessfuly Left rotator cuff repair Current Medications Home Meds Reported Medications Zinc (Zinc) 50 Mg Tablet, 50 MG PO DAILY, TAB 11/20/16 Cholecalciferol (Vitamin D3) (Vitamin D) 5,000 Unit Capsule, 1 TAB PO DAILY 11/20/16 Amiodarone HCl (Amiodarone HCl) 200 Mg Tablet, 200 MG PO DAILY, TAB 11/20/16 Aspirin (Aspir 81) 81 Mg Tablet.dr, 1 TAB PO DAILY, #30 TAB 5 Refills 11/20/16 Carvedilol (Carvedilol) 25 Mg Tablet, 1 TAB PO BID, TAB BEST WITH FOOD. 11/20/16 Enalapril Maleate (Enalapril Maleate) 20 Mg Tablet, 1 TAB PO BID, TAB 11/20/16 Furosemide (Furosemide) 80 Mg Tablet, 1 TAB PO BID, #180 TAB 3 Refills 11/20/16 Hydroxyzine HCl (Hydroxyzine HCl) 25 Mg Tablet, 1 TAB PO PM, TAB 11/20/16 Oxycodone HCl/Acetaminophen (Oxycodone-Acetaminophen 5-325) 5-325 Tablet, 1-2 TAB PO Q4H Y for PAIN, TAB 11/20/16 Cyanocobalamin (Vitamin B-12) (Vitamin B-12) 5,000 Mcg Tab.rapdis, 1 TAB PO DAILY, TAB 11/20/16 Rivaroxaban (Xarelto) 20 Mg Tablet, 1 TAB PO DAILY, #30 TAB 11 Refills 11/20/16 Allergies: Coded Allergies: No Known Drug Allergies (Verified Allergy, Unknown, 11/20/16) Family History Family History: Mother - breast cancer, A-fib, & HTN Father - she doesn't know her biologic father Sister - breast cancer 5 grown children - 2 girls 3 boys, all healthy except one daughter had breast cancer Social History Smoking Status: Never smoker Substance Use Type: does not use Alcohol Intake: none Marital Status: (58 years in December 2016) Housing: house Current Occupational Status: retired 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 Farzad Marshall - PCP Dr. Schaefer - CV Review of Systems Constitutional: REPORTS: chills, dizziness (when she changes position), other ( sleepy), weakness, DENIES: fever Eyes Vision: DENIES: blurring, vision changes ENMT Sinuses: NOT FOUND: congestion, rhinorrhea Mouth/Throat: DENIES: change in swallowing Cardiovascular DENIES: chest pain, dyspnea on exertion Rhythm/Rate: irregular beat, palpitations Vascular: pedal edema (have been lately since she's been sleeping in the chair with her legs hanging down) Pulmonary Respiratory: DENIES: cough, dyspnea GI Upper Abdomen: nausea (after pain pills), DENIES: vomiting Lower Abdomen: constipation (no BM since Saturday ) General: DENIES: dysuria, frequency Musculoskeletal General: joint pain, see HPI Integumentary Skin: other (bruising to right wrist/forearm) Neurological General: DENIES: headache, seizures, syncope Psychiatric Psychiatric: DENIES: anxiety, depression Hematologic/Lymphatic easy bruising All Other Systems All Other Systems: Reviewed (remainder of 10-point ROS Neg.) Physical Exam General General Nourishment: well nourished, well developed, thin General Body Habitus: well groomed Vital Signs Vital Signs Date Time Temp Pulse Resp B/P Pulse Ox O2 Delivery O2 Flow Rate FiO2 11/20/16 14:50 18 11/20/16 12:56 96.1 72 114/65 98 Room Air Height (Feet): 5 Height (Inches): 8.00 Eyes Brief: FOUND: PERRL, NOT FOUND: scleral icterus ENMT Brief: FOUND: mucosa moist, NOT FOUND: pharnyx erythema Neck Brief: NOT FOUND: adenopathy, nuchal rigidity Respiratory Auscultation: FOUND: normal, NOT FOUND: rales, rhonchi, wheezes Cardiovascular Auscultation: FOUND: S1, S2, regular Murmur: FOUND: systolic Peripheral Pulses: 2+: Dorasalis Pedis (L), Dorsalis Pedis (R), Posterior Tibial (L), Posterior Tibial (R), Radial (L), Radial (R) Edema: 0: Anasarca, Arm (L), Face, Leg (L), Leg (R), 1+: Arm (R) Abdomen Inspection: NOT FOUND: distention Palpation: FOUND: soft, NOT FOUND: McBurney's point tender, Lee's sign, involuntary guarding, rebound, tender, voluntary guarding Auscultation: FOUND: normo active Lymphatic (brief) Lymphatic Brief: NOT FOUND: adenopathy Musculoskeletal (brief) Musculoskeletal Brief: FOUND: tenderness (tenderness proximal to right popliteal fossa) Comments splint applied to right wrist, fingers are ecchymotic and swollen known pelvic fractures on right Integumentary (brief) Integumentary Brief: FOUND: dry, pink, warm Integumentary General: FOUND: dry, warm Color: FOUND: pink Neurologic (brief) Neurological Brief: FOUND: cranial 2-12 intact (grossly), sensory (mild paresthesias to distal fingertips on right hand) Neurologic GCS Eye Opening: (4)Spontaneous GCS Verbal: (5)Oriented GCS Motor: (6)Obeys Commands RN Documented GCS Total: 15 Psychiatric (brief) FOUND: alert, attentive, normal affect, oriented Laboratory Laboratory Tests Test 11/20/16 13:01 White Blood Count 4.5T/MM3 Red Blood Count 4.09M/MM3 Hemoglobin 11.3GM/DL Hematocrit 35.6% Mean Corpuscular Volume 87.0UM3 Mean Corpuscular Hemoglobin 27.6UUG Mean Corpuscular Hemoglobin Concent 31.7GM/DL RDW Standard Deviation 41.9FL Platelet Count 200T/MM3 Mean Platelet Volume 10.4UM3 Immature Granulocyte % (Auto) 0.0% Neutrophils (%) (Auto) 58.3% Lymphocytes (%) (Auto) 25.8% Monocytes (%) (Auto) 12.1% Eosinophils (%) (Auto) 3.1% Basophils (%) (Auto) 0.7% Absolute Immature Granulocyte (auto 0.00T/MM3 Absolute Neutrophils (auto) 2.7T/MM3 Absolute Lymphocytes (auto) 1.2T/MM3 Absolute Monocytes (auto) 0.6T/MM3 Absolute Eosinophils (auto) 0.1T/MM3 Absolute Basophils (auto) 0.0T/MM3 Turbidity < 20 Sodium Level 143MEQ/L Potassium Level 4.5MEQ/L Chloride Level 98MEQ/L Carbon Dioxide Level 30MEQ/L Anion Gap 15MEQ/L Blood Urea Nitrogen 38.0MG/DL Creatinine 1.6MG/DL Glomerular Filtration Rate Calc 31 BUN/Creatinine Ratio 24RATIO Glucose Level 97MG/DL Calculated Osmolality 284MOSM/KG Calcium Level 9.1MG/DL Total Bilirubin 1.80MG/DL Icterus Index < 2 Aspartate Amino Transf (AST/SGOT) 32U/L Alanine Aminotransferase (ALT/SGPT) 26U/L Alkaline Phosphatase 177U/L Total Protein 7.1G/DL Albumin 4.0G/DL Globulin 3.1G/DL Albumin/Globulin Ratio 1.3RATIO Chemistry Specimen Hemolysis < 15 Impression/Recommendation Problems: (1) Distal radius fracture, right Status: Acute (2) Pelvis fracture, right Status: Acute (3) Atrial fibrillation Status: Chronic (4) CAD (coronary artery disease) Status: Chronic (5) HTN (hypertension) Status: Chronic Impression 1. Closed mildly displaced comminuted intraarticular distal radius fracture with nondisplaced ulnar styloid fracture. 1. Closed right superior and inferior pubic rami fracture. 2. Right primary hip osteoarthritis. Recommendation Agree with pain control per Dr. Cotton. Dx discussed with Dr. Cotton - hold Xarelto d/t small chance of wrist needing ORIF. OK to give a dose of Lovenox today. Hold ASA. Consult PT/OT. Suspect she will need rehab since she wasn't managing well at home. Elevated creatinine at 1.6 - unknown baseline. Lab records requested from PCP's office. Hold RANDELL inhibitor and Lasix for now. IVF have been ordered A-fib and hx of CHF - continue Coreg & amiodarone. Monitor for fluid overload. Tenderness proximal to right popliteal fossa - check venous u/s. Constipation - start bowel regimen. Thank you for this consult. RAUDEL METCALF MD 11/20/16 6414: Past Medical History Current Medications Home Meds Reported Medications Zinc (Zinc) 50 Mg Tablet, 50 MG PO DAILY, TAB 11/20/16 Cholecalciferol (Vitamin D3) (Vitamin D) 5,000 Unit Capsule, 1 TAB PO DAILY 11/20/16 Amiodarone HCl (Amiodarone HCl) 200 Mg Tablet, 200 MG PO DAILY, TAB 11/20/16 Aspirin (Aspir 81) 81 Mg Tablet., 1 TAB PO DAILY, #30 TAB 5 Refills 11/20/16 Carvedilol (Carvedilol) 25 Mg Tablet, 1 TAB PO BID, TAB BEST WITH FOOD. 11/20/16 Enalapril Maleate (Enalapril Maleate) 20 Mg Tablet, 1 TAB PO BID, TAB 11/20/16 Furosemide (Furosemide) 80 Mg Tablet, 1 TAB PO BID, #180 TAB 3 Refills 11/20/16 Hydroxyzine HCl (Hydroxyzine HCl) 25 Mg Tablet, 1 TAB PO PM, TAB 11/20/16 Oxycodone HCl/Acetaminophen (Oxycodone-Acetaminophen 5-325) 5-325 Tablet, 1-2 TAB PO Q4H Y for PAIN, TAB 11/20/16 Cyanocobalamin (Vitamin B-12) (Vitamin B-12) 5,000 Mcg Tab.rapdis, 1 TAB PO DAILY, TAB 11/20/16 Rivaroxaban (Xarelto) 20 Mg Tablet, 1 TAB PO DAILY, #30 TAB 11 Refills 11/20/16 Allergies: Coded Allergies: No Known Drug Allergies (Verified Allergy, Unknown, 11/20/16) Impression/Recommendation Impression I have independently evaluated and examined this patient. I reviewed the chart, the patient's history, and the PIECE MAKER's documented findings as above. We discussed and formulated the assessment and plan as above with additions as below: Mrs. Jacques describes recent fall from standing with resultant right distal radius fracture and superior/inferior right pubic rami fractures resulting in inability to ambulate independently due to pain. She denies chest pain or dyspnea and is hospitalized now for stabilization and possible ORIF of the wrist. Examination reveals an alert female with fluent speech. Right fingers are moderately swollen, warm, with intact sensation. She is able to wiggle the fingers without difficulty. Likewise sensation is intact in the right lower extremity with good dorsiflexion and plantar flexion at the right ankle. Respirations are nonlabored with good airflow in cardiac rhythm is irregular consistent with A. fib. In addition to above diagnoses please add: 1. Primary osteoarthritis 2. Renal insufficiency, unknown duration Medically stable at present. DEMETRIO LEVY APRN Nov 20, 2016 15:22 RAUDEL METCALF MD Nov 20, 2016 17:17
[2016-11-20 16:13] VITALS: BP 94/61; PULSE 73; RESP 20; TEMP 97.1; O2SAT 92
[2016-11-20] MEDS ORDERED: MILK OF MAGNESIA 30 ML SUSP PO ONE (16:15)
[2016-11-20] MEDS ORDERED: ENOXAPARIN 40 MG/0.4 ML INJECTION SQ ONE (16:15)
--- NOTE | 2016-11-20 16:56 | DI ---
Indication: ITS.REASON: pain behind knee PROCEDURE: US VENOUS DUPLEX, LOWER EXT RT: Encounter: Initial Comparison: None Technique: Color Doppler duplex and grayscale sonographic imaging of the right lower extremity was performed. Findings: There is no evidence for acute deep venous thrombosis in the right thigh. Specifically, serial graded compression was performed from the inguinal ligament to the popliteal bifurcation, on the right thigh, demonstrating appropriate compressibility of the deep venous system. In addition, color and pulsed Doppler demonstrate appropriate spontaneous flow, variation with respiration, and augmentation with calf compression. At the ankle, normal flow is identified in the posterior tibial veins; these vessels are also normal in caliber. No evidence of a Lam's cyst. Impression: No evidence of acute DVT in the right lower limb. .
--- NOTE | 2016-11-20 17:17 | NUR ---
IRU referral received. Admission evaluation pending therapy consultations. Will continue to follow.
[2016-11-20 17:55] VITALS: PULSE 73; RESP 20; O2SAT 92
[2016-11-20] MEDS: CARVEDILOL 25 MG TABLET PO SCH (18:41)
[2016-11-20 20:28] VITALS: BP 118/67; PULSE 76; RESP 20; TEMP 97.1; O2SAT 98
[2016-11-20] MEDS: CALCIUM 600mg + VIT D 400 TABLET PO SCH (21:19)
[2016-11-20] MEDS: SENNA + DOCUSATE TAB PO SCH (21:19)
[2016-11-21 00:10] VITALS: BP 114/67; PULSE 71; RESP 20; TEMP 96.5; O2SAT 96
--- NOTE | 2016-11-21 00:12 | NUR ---
Shift note Pivot Transfered to [facility] with gait belt and assist of one. Pt. rated arm pain '7' at bedtime; received Tylenol. Able to sleep after that.
--- NOTE | 2016-11-21 01:50 | NUR ---
Chart Check 24 hour chart check completed
[2016-11-21] MEDS: NORMAL SALINE 1,000 ML IV SCH (02:16)
[2016-11-21] MEDS: ACETAMINOPHEN 325 MG TABLET PO SCH ×3 (03:00→15:37)
[2016-11-21 04:27] VITALS: BP 130/69; PULSE 76; RESP 20; TEMP 96.2; O2SAT 97
[2016-11-21 05:34] LABS: BASOPHILS % (AUTO) 0.8 % (0-2); EOSINOPHILS # (AUTO) 0.1 T/MM3 (0-0.5); HCT - HEMATOCRIT 33.7 % (36-46); HGB - HEMOGLOBIN 10.7 GM/DL (12-16); LYMPHOCYTES # (AUTO) 1.2 T/MM3 (1-4.8); LYMPHOCYTES % (AUTO) 32.9 % (23-45); MEAN CORPUSCULAR HGB 27.6 UUG (26-34); MEAN CORPUSCULAR HGB CONC(MCHC 31.8 GM/DL (31-37); MEAN CORPUSCULAR VOLUME 87.1 UM3 (80-100); MEAN PLATELET VOLUME 10.8 UM3 (9.4-12.4); MONOCYTES # (AUTO) 0.5 T/MM3 (0-0.8); MONOCYTES % (AUTO) 14.4 % (0-9.0); NEUTROPHILS #(AUTO)-ABSOLUTE 1.7 T/MM3 (1.8-7.7); NEUTROPHILS % (AUTO) 47.9 % (33-66); RED BLOOD COUNT 3.87 M/MM3 (4.00-5.20); WBC - WHITE BLOOD COUNT 3.5 T/MM3 (4.5-11.0)
[2016-11-21 05:47] LABS: ANION GAP 11 MEQ/L (5-15); BUN/CREATININE RATIO 24 RATIO (6-26); CALCIUM 8.8 MG/DL (8.4-10.2); CHLORIDE 101 MEQ/L (98-107); CO2 - CARBON DIOXIDE 30 MEQ/L (22-30); CREATININE 1.4 MG/DL (0.7-1.2); GLOMERULAR FILTRATION RATE 37; GLUCOSE 93 MG/DL (65-110); POTASSIUM 4.3 MEQ/L (3.6-5); SODIUM 142 MEQ/L (134-144)
--- NOTE | 2016-11-21 05:48 | NUR ---
Shift Note Slept well overnight. Refused Tylenol 0300 - stated "I don't have pain right now".
[2016-11-21 07:48] VITALS: BP 128/69; PULSE 75; RESP 16; TEMP 96.3; O2SAT 97
[2016-11-21] MEDS ORDERED: CYANOCOBALAMIN (B-12) 500mcg TABLET PO SCH (09:00)
[2016-11-21] MEDS ORDERED: ZINC 50 MG PO SCH (09:00)
[2016-11-21] MEDS ORDERED: AMIODARONE 200 MG TABLET PO SCH (09:00)
[2016-11-21] MEDS ORDERED: CHOLECALCIFEROL 5,000 UNIT CAPSULE PO SCH (09:00)
[2016-11-21] MEDS ORDERED: ASPIRIN *EC* 81mg TABLET PO SCH (09:00)
[2016-11-21] MEDS ORDERED: POLYETHYL.GLYCOL 3350 PACKET 17gm PO SCH (09:00)
[2016-11-21] MEDS: CARVEDILOL 25 MG TABLET PO SCH ×2 (09:01→18:09)
[2016-11-21] MEDS: CALCIUM 600mg + VIT D 400 TABLET PO SCH (09:02)
[2016-11-21] MEDS: SENNA + DOCUSATE TAB PO SCH (09:02)
--- NOTE | 2016-11-21 09:33 | NUR ---
Status Patient alert and oriented. Denies SOA, states she uses her IS every hour. Up with assist of 1 and walker. States when she lays in bed, she has no pain however pain gets pretty high with transfers. [place] constipated however was able to have a large BM after breakfast, good appetite.
--- NOTE | 2016-11-21 13:00 | NUR ---
CM CM IN TO VISIT WITH PT. SHE IS ALERT AND ORIENTED. SHE IS AWARE THAT IRU SCREEN HAS BEEN PLACED. PRIVATE PAY V. HHS ARE ALSO DISCUSSED. PT REPORTS THAT HER SPOUSE AND SON ARE HOME WITH HER. CM WILL CHECK ON STATUS OF IRU SCREEN AND RETURN TO DISCUSS DC OPTIONS. PT IS GIVEN CM CONTACT INFORMATION. Addendum: 11/21/16 at 1302 by KODAK GODRON RN Amended: Links added.
--- NOTE | 2016-11-21 14:18 | PDORTHOPN ---
Subjective Date DATE: 11/21/16 TIME: 14:16 Subjective Henna is feeling better. She has been ambulating fair distances. Her pain has been reasonable with Tylenol. She does not want Oxycodone anymore because it caused constipation. She is interested in trying Tramadol. IRU screen is pending. Objective Vital Signs Vital signs Vital Signs 11/21/16 11/21/16 04:27 07:48 Temp 96.2 96.3 Pulse 76 75 Resp 20 16 B/P 130/69 128/69 Pulse Ox 97 97 O2 Delivery Room Air Room Air Height (Feet): 5 Height (Inches): 8.00 Weight (Kilograms): 79.500 General General Appearance: Alert, Orientated x 3, No Acute Distress Respiratory (Brief) Respiratory Brief: FOUND: non-labored Cardiovascular (Brief) Cardiac: FOUND: calf easily compressible, calf soft, nontender Capillary Refill: <2 sec Abdomen (Brief) Abdominal Brief: FOUND: non-tender Musculoskeletal (Brief) Hip: FOUND extension-limited, FOUND flexion-limited Surgical Site Comments splint to right wrist fitting well. Integumentary (Brief) Integumentary Brief: FOUND dry, FOUND pink, FOUND warm Neurologic (Brief) Neurological Brief: FOUND: extremities w/o deficits Psychiatric (Brief) Psychiatric Brief: FOUND: no acute distress, oriented Laboratory Laboratory Laboratory Tests 11/20/16 13:01 11/21/16 04:43 Laboratory Tests 11/20/16 13:01 11/21/16 04:43 Assessment & Plan Problems: (1) Osteopenia Status: Chronic Assessment & Plan: Start calcium. will check with Dr Marshall about her DEXA scan Hospital Course Summary Disclaimer The visit summary below is not to be considered part of the above Progress Note. ZACH GARCIA Nov 21, 2016 14:18
[2016-11-21] MEDS ORDERED: TRAMADOL 50 MG TABLET PO PRN (14:30)
--- NOTE | 2016-11-21 15:12 | NUR ---
NATALIYA CM IN TO VISIT WITH PT. SHE IS ALERT AND ORIENTED. SHE IS MADE AWARE THAT SHE HAS BEEN ACCEPTED TO [facility]. SHE PLANS TO DC THERE TODAY. ZACH RADHA IS PAGED. Addendum: 11/21/16 at 1513 by KODAK GORDON RN Amended: Links added.
[2016-11-21] MEDS ORDERED: ACET-2321 PO (15:21)
[2016-11-21] MEDS ORDERED: POLY17PO18 PO (15:21)
[2016-11-21] MEDS ORDERED: TRAM50TA53 PO (15:21)
[2016-11-21 15:39] VITALS: BP 124/67; PULSE 77; RESP 16; TEMP 97.5; O2SAT 98
[2016-11-21 16:33] VITALS: BP 129/72; PULSE 74; RESP 16; TEMP 96.9; O2SAT 99
--- NOTE | 2016-11-21 18:36 | NUR ---
Discharge Patient discharged to IRU. Report given to Emelyn MCLEAN. IV site left in place.
--- NOTE | 2016-11-21 19:19 | PNPDOC ---
Subjective Date DATE: 11/21/16 TIME: 19:14 Subjective Mrs. Jacques was seen this morning. She complained of persistent pain primarily in her wrist for which she's taking Tylenol. She is reluctant to take other medications due to nausea and constipation with narcotics. She was able to ambulate using a platform walker to and from the bathroom at least twice prior to my visit. She had a bowel movement after using milk of mag/purring juice. She denied dyspnea, fever, lightheadedness, or dysuria. Objective Vital Signs Vital signs Vital Signs Date Time Temp Pulse Resp B/P Pulse Ox O2 Delivery O2 Flow Rate FiO2 11/21/16 16:33 96.9 74 16 129/72 99 Room Air NAD, alert, fluent speech Conjugate gaze, EOMI, conjunctiva clear, sclera anicteric Respirations nonlabored, breath sounds clear anteriorly/laterally Irregular cardiac rhythm, S1-S2 Abdomen soft and nontender, bowel sounds present No edema in the lower extremities however the right fingers are moderately swollen-possibly slightly less today than yesterday Sensation intact right fingers and bilateral lower extremities Height (Feet): 5 Height (Inches): 8.00 Weight (Kilograms): 79.500 Laboratory Laboratory Laboratory Tests 11/20/16 13:01 11/21/16 04:43 Laboratory Tests 11/20/16 13:01 11/21/16 04:43 Assessment & Plan Problems: (1) Distal radius fracture, right Status: Acute (2) Pelvis fracture, right Status: Acute (3) Atrial fibrillation Status: Chronic (4) CAD (coronary artery disease) Status: Chronic (5) HTN (hypertension) Status: Chronic (6) DJD (degenerative joint disease) Status: Chronic (7) Renal insufficiency Status: Acute Assessment & Plan: Baseline creatinine 1.03 on 07/25/[address] Marshall's office Assessment Medically stable, creatinine improved today. Continue to monitor intermittently. Discussed alternate narcotics that could be tried discussed alternate pain medications that could be tried however patient is reluctant to do so at this time. Continue current medications. Continue to monitor renal function. May require minor adjustment in furosemide dose. Plan/Intensity of Service Laboratory data reviewed, data obtained from Dr. Marshall's office. Code Status Full Code Hospital Course Summary Disclaimer The hospital course summary below is not to be considered part of the above Progress Note. RAUDEL LOCKETT MD Nov 21, 2016 19:18
[2016-11-22] MEDS ORDERED: FURO80TA3 PO (09:21)
== END 2016-11-21 18:35 | DRG 563 ==
LOC: SRG 12:25
PROVIDERS: ADMIT Orthopaedic Surgery; ATTEND Orthopaedic Surgery
DX: S52.501A Unspecified fracture of the lower end of right radius, initial encounter for closed fracture (principal); S32.511A Fracture of superior rim of right pubis, initial encounter for closed fracture; S32.591A Other specified fracture of right pubis, initial encounter for closed fracture; M85.80 Other specified disorders of bone density and structure, unspecified site; I48.91 Unspecified atrial fibrillation; I25.10 Atherosclerotic heart disease of native coronary artery without angina pectoris; I10 Essential (primary) hypertension; M16.11 Unilateral primary osteoarthritis, right hip; N28.9 Disorder of kidney and ureter, unspecified; W19.XXXA Unspecified fall, initial encounter; Y92.019 Unspecified place in single-family (private) house as the place of occurrence of the external cause; Y99.8 Other external cause status; Z95.0 Presence of cardiac pacemaker; Z79.82 Long term (current) use of aspirin
CPT/HCPCS: 36415; 80048; 80053; 82306; 85025

== ENCOUNTER 2016-11-21 18:35 | Inpatient (IN) | payer MEDICARE, OTHER ==
[~2016-11-21] VITALS: Ht 172.7 cm; Wt 76.9 kg
[~2016-11-21 18:35] MED LIST: ACET-2321 PO; AMIO200T2 PO; ASPI-557 PO; CARV25TA2 PO; CHOL500051 PO; CYAN50003 PO; ENAL20TA PO; FURO80TA3 PO; HYDR25TA85 PO; OXYC-541 PO; POLY17PO18 PO; RIVA20TA PO; TRAM50TA53 PO; ZINC50TA39 PO
--- NOTE | 2016-11-21 18:35 | NUR ---
ADMIT NOTE PT ARRIVED FROM SURGICAL UNIT VIA WHEELCHAIR. PT'S FAMILY ARRIVED SOON AFTER. PT WAS IN STABLE CONDITION, VS WERE BP: 131/76, HR: 73, SPO2: 98% ON RA, AND TEMP: 97.9 ORALLY. PT PERSONAL ITEMS INCLUDED 1 SET OF CLOTHING AND A PURSE. HOME MEDS ARE LOCKED UP IN MOD IT [employer] ARCHITECT, WILL TAKE THEM HOME TOMORROW.
[2016-11-21 18:44] VITALS: BP 131/76; PULSE 73; RESP 18; TEMP 97.9; O2SAT 98
--- OUTSIDE RECORDS SUMMARY | 2016-11-21 19:11 | XMS REPORT | Continuity of Care Document ---
Author Author [facility] Organization [facility] Address Unknown Phone Unavailable Support Name Relationship Address Phone KALYANI GRIER Caregiver [address] [place] [address] Unavailable MABLE COTTON MD Caregiver [address] [place] [address] Unavailable MABLE COTTON MD Caregiver [address] [place] [address] Unavailable ANGÉLICA VERDE Next Of Kin [address] [place] [address] Insurance Providers Guarantor Henna Verde Address [address] [place] [address] Email DENIED 16 Payer [employer] Medicare Supplement Policy Number [id number] Subscriber's Name Henna Verde Relationship 18 Self Group Number [id number] Payer Medicare Policy Number [id number] Subscriber's Name Henna Verde Relationship 18 Self Advance Directives Directive Response Recorded Date/Time Ordered Resuscitation Status Full Code 11/20/16 12:44pm Resuscitation Documents on File No 11/20/16 12:45pm DPOA for Healthcare Only No 11/20/16 4:11pm Living Will No 11/20/16 12:45pm Problems Active Problems Medical Problem Onset Date Status Atrial fibrillation Unknown Chronic CAD (coronary artery disease) Unknown Chronic CHF (congestive heart failure) Unknown Distal radius fracture, right Unknown Acute HTN (hypertension) Unknown Chronic Osteopenia Unknown Chronic Pelvis fracture, right Unknown Acute Medications Current Home Medications Medication Dose Units Route Directions Days Qty Instructions Start Date Acetaminophen (Tylenol) 325 Mg Tablet 650 Mg Oral Q6h/0300,0900,1500,2100 100 Tablet 11/21/16 Amiodarone Hcl 200 Mg Tablet 200 Mg Oral Daily 11/20/16 Aspirin (Aspir 81) 81 Mg Tablet. 1 Tab Oral Daily 30 Tablet 11/20 Carvedilol 25 Mg Tablet 1 Tab Oral Twice A Day BEST WITH FOOD. Cholecalciferol (Vitamin D3) (Vitamin D) 5,000 Unit Capsule 1 Tab Oral Daily 11/20/16 Cyanocobalamin (Vitamin B-12) (Vitamin B-12) 5,000 Mcg Tab.rapdis 1 Tab Oral Daily 11/20/16 Hydroxyzine Hcl 25 Mg Tablet 1 Tab Oral Every Evening 11/20/16 Oxycodone Hcl/Acetaminophen (Oxycodone-Acetaminophen 5-325) 5-325 Tablet 1-2 Tab Oral Every 4 Hours as needed for Pain 11/20/16 Polyethylene Glycol 3350 (Healthylax) 17 Gm Powd.pack 17 G Oral Daily 30 Packet 11/21/16 Rivaroxaban (Xarelto) 20 Mg Tablet 1 Tab Oral Daily 30 Tablet 11/20 Tramadol Hcl (Ultram) 50 Mg Tablet 50-100 Mg Oral Four Times Daily as needed for Pain 60 Tablet 11/21/16 Zinc 50 Mg Tablet 50 Mg Oral Daily 11/20/16 Past Home Medications Medication Directions Ordered Status Enalapril Maleate 20 Mg Tablet, 1 Tab Oral Twice A Day 11/20/16 Discontinued Furosemide 80 Mg Tablet, 1 Tab Oral Twice A Day 11/20/16 Discontinued Social History Social History Problem Response Recorded Date/Time Onset Date Status Reason for Hospitalization right wrist fracture, right pubic rami fracture 6:10pm Not Applicable Not Applicable Has the pt used tobacco in the last 12 months No 11/20/2016 12:50pm Not Applicable Not Applicable Query Response Start Date Stop Date Smoking Status Never smoker Hospital Discharge Instructions Instructions: Care Instructions: Reason for Hospitalization: right wrist fracture, right pubic rami fracture I was in the hospital because (patient own words): "HAVE A BAD PAIN IN RIGHT LEG" Discharge Diet: Regular Discharge Activity: WBAT with walker and forearm support Follow Up Appointments: 1 week in clinic with Dr. Cotton Pending Lab / Results: No Pending Lab Patient Instructions: Keeps splint on and dry. Wound/Incision Care: N/A. Pain Scale Utilized to Educate Patient: 0-10 Pain Scale Pain Management/Treatment: Use Tramadol and Tylenol Expected Signs/Symptoms: controlled pain Notify Physician If: uncontrolled pain, fever, chills, sweats During Business Hours:: Please call the physician's office at [phone] After Business Hours:: Please call [phone] and have the cork pressing machine operator page the physician. Condition at time of discharge: Good Plan of Care Discharge Date 11/21/16 6:35pm Disposition 62 TO [facility] Instructions/Education Provided [facility] General Instructions Prescriptions See Medication Section Additional Instructions/Education FOLLOW UP WITH DR. RODRÍGUEZ ON 01/22/2017 AT 9: 00, CHECK IN AT 8:30 AM. Care Plan and Goals See Discharge Instructions Section Functional Status Query Response Date Recorded Mobility Status Ambulatory November 21, 2016 6:10pm Assistive Devices None November 21, 2016 6:10pm Activity Limitations None November 21, 2016 6:10pm Feeding Ability Independent November 21, 2016 6:10pm Toileting Ability Assist November 20, 2016 12:42pm Grooming Ability Assist November 21, 2016 6:10pm Dressing Ability Assist November 21, 2016 6:10pm Driving Ability Independent November 21, 2016 6:10pm Housework Ability Independent November 21, 2016 6:10pm Meal Preparation Ability Independent November 21, 2016 6:10pm Stair Climbing Ability Independent November 21, 2016 6:10pm Ability to complete ADL's impeded by Impaired Mobility November 21, 2016 6:10pm Cognitive/Perceptual Impairments None November 21, 2016 6:10pm Allergies, Adverse Reactions, Alerts Allergen Type Severity Reaction Status Last Updated No Known Drug Allergies Allergy Unknown Active 11/20/16 Immunizations Query Response on File Recorded Date/Time Hx Influenza Vaccination No 11/20/16 12:50pm Hx Pneumococcal Vaccination No 11/20/16 12:50pm Hx Influenza Vaccination No 11/20/16 12:50pm Vital Signs Acute Vital Signs Vital Response Date/Time Temperature (Fahrenheit) 96.9 deg F (96.8 - 99.1) 11/21/2016 4:33pm Temperature (Calculated Celsius) 36.13170 degrees C (36.0 - 37.3) 11/21/2016 4:33pm Pulse Rate (adult) 74 bpm (60 - 100) 11/21/2016 4:33pm Respiratory Rate 16 breaths/min (10 - 20) 11/21/2016 4:33pm O2 Sat by Pulse Oximetry 99 % (90 - 100) 11/21/2016 4:33pm Oxygen Delivery Method Room Air 11/21/2016 4:33pm Blood Pressure 129/72 mm Hg 11/21/2016 4:33pm Blood Pressure Source Automatic Cuff 11/21/2016 4:33pm Height (Feet) 5 feet 11/20/2016 4:11pm Height (Inches) 8.00 inches 11/20/2016 4:11pm Weight (Kilograms) 79.500 kg 11/21/2016 7:50am Body Mass Index (BMI) 25.7 11/20/2016 12:44pm Results Laboratory Results Test Name Result Units Flags Reference Collection Date/Time Result Date/ Time Comments White Blood Count 3.5 T/MM3 L 4.5-11.0 11/21/2016 4:43am 11/21/2016 5: 34am Red Blood Count 3.87 M/MM3 L 4.00-5.20 11/21/2016 4:4311/21/2016 5: 34am Hemoglobin 10.7 GM/DL L 12-16 11/21/2016 4:4311/21/2016 5:34am Hematocrit 33.7 % L 36-46 11/21/2016 4:4311/21/2016 5:34am Mean Corpuscular Volume 87.1 UM3 80-100 11/21/2016 4:4311/21/2016 5: 34am Mean Corpuscular Hemoglobin 27.6 UUG 26-34 11/21/2016 4:432016 5:34am Mean Corpuscular Hemoglobin Concent 31.8 GM/DL 31-37 11/21/2016 4:4311/21/2016 5:34am RDW Standard Deviation 41.9 FL 36.9-50.2 11/21/2016 4:4311/21/2016 5 :34am Platelet Count 191 T/MM3 130-400 11/21/2016 4:4311/21/2016 5:34am Mean Platelet Volume 10.8 UM3 9.4-12.4 11/21/2016 4:4311/21/2016 5: 34am Neutrophils (%) (Auto) 47.9 % 33-66 11/21/2016 4:4311/21/2016 5: 34am Lymphocytes (%) (Auto) 32.9 % 23-45 11/21/2016 4:4311/21/2016 5: 34am Monocytes (%) (Auto) 14.4 % H 0-9.0 11/21/2016 4:4311/21/2016 5:34am Eosinophils (%) (Auto) 4.0 % 0-4 11/21/2016 4:4311/21/2016 5:34am Basophils (%) (Auto) 0.8 % 0-2 11/21/2016 4:4311/21/2016 5:34am Immature Granulocyte % (Auto) 0.0 % 0.0-0.5 11/21/2016 4:432016 5:34am Absolute Neutrophils (auto) 1.7 T/MM3 L 1.8-7.7 11/21/2016 4:432016 5:34am Absolute Lymphocytes (auto) 1.2 T/MM3 1-4.8 11/21/2016 4:432016 5:34am Absolute Monocytes (auto) 0.5 T/MM3 0-0.8 11/21/2016 4:4311/21/2016 5:34am Absolute Eosinophils (auto) 0.1 T/MM3 0-0.5 11/21/2016 4:432016 5:34am Absolute Basophils (auto) 0.0 T/MM3 0-0.2 11/21/2016 4:4311/21/2016 5:34am Absolute Immature Granulocyte (auto 0.00 T/MM3 0.00-0.03 11/21/2016 4: 4311/21/2016 5:34am Icterus Index < 2 0-7 11/21/2016 4:4311/21/2016 5:47am Chemistry Specimen Hemolysis < 15 0-25 11/21/2016 4:4311/21/2016 5 :47am 0-25: Specimen Exhibited No Hemolysis. Turbidity < 20 0-20 11/21/2016 4:4311/21/2016 5:47am Sodium Level 142 MEQ/L 134-144 11/21/2016 4:4311/21/2016 5:47am Potassium Level 4.3 MEQ/L 3.6-5 11/21/2016 4:4311/21/2016 5:47am Chloride Level 101 MEQ/L 98-107 11/21/2016 4:4311/21/2016 5:47am Carbon Dioxide Level 30 MEQ/L 22-30 11/21/2016 4:43am 11/21/2016 5: 47am Anion Gap 11 MEQ/L 5-15 11/21/2016 4:43am 11/21/2016 5:47am Blood Urea Nitrogen 34.0 MG/DL H 7-17 11/21/2016 4:43am 11/21/2016 5: 47am Creatinine 1.4 MG/DL D H 0.7-1.2 11/21/2016 4:43am 11/21/2016 6:03am BUN/Creatinine Ratio 24 RATIO 6-26 11/21/2016 4:43am 11/21/2016 5:47am Glomerular Filtration Rate Calc 37 11/21/2016 4:43am 11/21/2016 5: 47am Glucose Level 93 MG/DL 65-110 11/21/2016 4:43am 11/21/2016 5:47am Calculated Osmolality 281 MOSM/KG H 261-280 11/21/2016 4:43am 2016 5:47am Calcium Level 8.8 MG/DL 8.4-10.2 11/21/2016 4:43am 11/21/2016 5:47am Total Bilirubin 1.80 MG/DL H 0.20-1.30 11/20/2016 1:01pm 11/20/2016 1: 28pm Alkaline Phosphatase 177 U/L H 38-126 11/20/2016 1:pm 11/20/2016 1: 28pm Total Protein 7.1 G/DL 6.3-8.2 11/20/2016 1:11/20/2016 1:28pm Albumin 4.0 G/DL 3.5-5.0 11/20/2016 1:11/20/2016 1:28pm Globulin 3.1 G/DL 2.4-3.6 11/20/2016 1:11/20/2016 1:28pm Albumin/Globulin Ratio 1.3 RATIO 1.1-2.2 11/20/2016 1:0111/20/2016 1 :28pm Aspartate Amino Transf (AST/SGOT) 32 U/L 14-36 11/20/2016 1:01pm 2016 1:28pm Alanine Aminotransferase (ALT/SGPT) 26 U/L 9-52 11/20/2016 1:01pm 11/20 1:28pm 25-Hydroxy Vitamin D Total 38 ng/mL 30-100 11/20/2016 1:01pm 2016 12:27pm Note new methodology, reference range and reporting of Vitamin D total only. A level consistently >200 is potentially toxic. Vitamin D, 25-Hydroxy performed at [facility], [address] [place] [address] Lithographic Platemaker Alena Lares DO Name: HENNA VERDE Unit #: [id number] : 1940 Sex: F Admit Date: 11/20/16 Loc / Svc: SRG Discharge Date: DIAGNOSTIC IMAGING REPORT Report #: [id number] [place], [place] Indication: ITS.REASON: pain behind knee PROCEDURE: US VENOUS DUPLEX, LOWER EXT RT: Encounter: Initial Comparison: None Technique: Color Doppler duplex and grayscale sonographic imaging of the right lower extremity was performed. Findings: There is no evidence for acute deep venous thrombosis in the right thigh. Specifically, serial graded compression was performed from the inguinal ligament to the popliteal bifurcation, on the right thigh, demonstrating appropriate compressibility of the deep venous system. In addition, color and pulsed Doppler demonstrate appropriate spontaneous flow, variation with respiration, and augmentation with calf compression. At the ankle, normal flow is identified in the posterior tibial veins; these vessels are also normal in caliber. No evidence of a Lam's cyst. Impression: No evidence of acute DVT in the right lower limb. . Procedures No known history of procedures. Encounters Encounter Location Arrival/Admit Date Discharge/Depart Date Attending Provider Discharged Inpatient [facility] 11/20/16 12:25pm 11/21/16 6:35pm MABLE COTTON MD
[2016-11-21 20:01] VITALS: Ht 172.7 cm; Wt 76.9 kg
[2016-11-21 20:21] VITALS: BP 118/71; PULSE 73; RESP 18; TEMP 98.4; O2SAT 89
[2016-11-21] MEDS ORDERED: OXYCODONE/APAP 5mg/325mg TABLET PO PRN (20:45)
[2016-11-21] MEDS: DOCUSATE SODIUM 100 MG CAPSULE PO SCH (21:00)
[2016-11-21] MEDS ORDERED: CARVEDILOL 25 MG TABLET PO SCH (21:00)
[2016-11-21] MEDS: ACETAMINOPHEN 325 MG TABLET PO SCH (21:26)
--- NOTE | 2016-11-21 23:33 | NUR ---
Summary Patient is alert and oriented times three, pleasant and cooperative. IVL dressing was comeing off, so I removed for change and I found IV was completely out. No IV medications and no Tele. IV DCed per Dr Brown. Also Pt reports her Zeralto is to be taken at night and note on medication read it is best to take with evening meal. It was ordered at 0900. Dose was changed to Dinner time per Dr Brown. Right hand is bruised and swollen. splint and Adán wrap intact. She reported pain of 8, but denied need for PRN medication as she was going to sleep. SHe is in bed with side rails up times two, bed alarm on and call light within reach.
--- NOTE | 2016-11-21 23:44 | NUR ---
Chart Check 24 hour chart check completed
[2016-11-21 23:45] VITALS: PULSE 73; RESP 18
[2016-11-22] MEDS: ACETAMINOPHEN 325 MG TABLET PO SCH ×4 (03:00→20:42)
[2016-11-22 05:06] LABS: BASOPHILS % (AUTO) 0.3 % (0-2); EOSINOPHILS # (AUTO) 0.1 T/MM3 (0-0.5); EOSINOPHILS % (AUTO) 3.4 % (0-4); HCT - HEMATOCRIT 32.7 % (36-46); HGB - HEMOGLOBIN 10.4 GM/DL (12-16); LYMPHOCYTES # (AUTO) 1.3 T/MM3 (1-4.8); LYMPHOCYTES % (AUTO) 36.1 % (23-45); MEAN CORPUSCULAR HGB 27.9 UUG (26-34); MEAN CORPUSCULAR HGB CONC(MCHC 31.8 GM/DL (31-37); MEAN CORPUSCULAR VOLUME 87.7 UM3 (80-100); MEAN PLATELET VOLUME 10.8 UM3 (9.4-12.4); MONOCYTES # (AUTO) 0.4 T/MM3 (0-0.8); MONOCYTES % (AUTO) 11.7 % (0-9.0); NEUTROPHILS #(AUTO)-ABSOLUTE 1.7 T/MM3 (1.8-7.7); NEUTROPHILS % (AUTO) 48.5 % (33-66); RED BLOOD COUNT 3.73 M/MM3 (4.00-5.20); WBC - WHITE BLOOD COUNT 3.5 T/MM3 (4.5-11.0)
[2016-11-22 05:33] LABS: ANION GAP 9 MEQ/L (5-15); BUN/CREATININE RATIO 21 RATIO (6-26); CALCIUM 8.9 MG/DL (8.4-10.2); CHLORIDE 104 MEQ/L (98-107); CO2 - CARBON DIOXIDE 28 MEQ/L (22-30); GLOMERULAR FILTRATION RATE 54; GLUCOSE 90 MG/DL (65-110); POTASSIUM 4.3 MEQ/L (3.6-5); SODIUM 141 MEQ/L (134-144)
[2016-11-22 06:17] VITALS: BP 126/76; PULSE 77; RESP 20; TEMP 97.8; O2SAT 98
[2016-11-22] MEDS: TRAMADOL 50 MG TABLET PO PRN (06:25)
--- NOTE | 2016-11-22 06:25 | NUR ---
Pain Rates pain in right arm and pelvis '4'; Ultram 50mg po given. Slept well overnight.
[2016-11-22] MEDS: DOCUSATE SODIUM 100 MG CAPSULE PO SCH ×2 (08:48→21:00)
[2016-11-22] MEDS: POLYETHYL.GLYCOL 3350 PACKET 17gm PO SCH (08:49)
[2016-11-22] MEDS: CHOLECALCIFEROL 5,000 UNIT CAPSULE PO SCH (08:49)
[2016-11-22] MEDS: CYANOCOBALAMIN (B-12) 500mcg TABLET PO SCH (08:49)
[2016-11-22] MEDS: ZINC 50 MG PO SCH (08:49)
[2016-11-22] MEDS: AMIODARONE 200 MG TABLET PO SCH (08:50)
[2016-11-22] MEDS: ASPIRIN *EC* 81mg TABLET PO SCH (08:57)
[2016-11-22] MEDS: CARVEDILOL 25 MG TABLET PO SCH ×2 (08:58→18:06)
[2016-11-22] MEDS ORDERED: RIVAROXABAN 20 MG TABLET PO SCH (09:00)
[2016-11-22] MEDS ORDERED: FURO80TA3 PO (09:21)
--- NOTE | 2016-11-22 09:23 | NUR ---
NATALIYA LAWRENCE SCORE IS 7. Addendum: 11/22/16 at 0924 by DIALLO DELGADO Amended: Links added.
--- NOTE | 2016-11-22 10:27 | CONSPD ---
DARIA LIMA V 11/22/16 1017: Consultation Info Date DATE: 11/22/16 TIME: 10:05 Date of Consultation: Nov 22, 2016 Attending Physician: Tea Reason for Consultation: A-fib, hypertension, chronic anticoagulation HPI - Adult Date DATE: 11/22/16 TIME: 10:05 General Chief Complaint: pelvic fracture, right distal radius fracture History of Present Illness Patient is a pleasant 76-year-old female who fell at home on 11/17/16. She was found to have a right distal radial fracture as well as right superior and inferior pubic rami fractures. She was initially treated and sent home, however , pain continued to be severe in nature. She was admitted on 11/20/16 and the care of Dr Prasanth Cotton for further orthopedic evaluation and treatment. Aggressive pain management was initiated. Given continued pain and functional deficits she was accepted to the IRU for ongoing therapy, strengthening and function improvement. This morning Labs are reviewed WBC count 3.5, Hgb 10.4, HCT 32.7, Plt 205. Sodium is 141, potassium 4.3, BUN 21, creatinine 1.0. Vital signs are reviewed, temperature 97.8, pulse 77, respiration rate 20, blood pressure 126/76, room air saturations 98%. Henna is seen this morning while resting in bed. She reports she is having a moderate amount of pelvic pain following ambulation to the dining room and back for breakfast. Past Medical History Past Medical History Atrial fibrillation Coronary artery disease Hypertension Surgical History Patient's Surgical History: PPM Heart catheterization with stent Ablation for A-fib - unsuccessfuly Left rotator cuff repair Current Medications Home Meds Active Scripts Furosemide (Furosemide) 80 Mg Tablet, 1 TAB PO BID, #180 TAB 3 Refills Prov:DARIA LIMA V 11/22/16 Polyethylene Glycol 3350 (Healthylax) 17 Gm Powd.pack, 17 G PO DAILY, #30 PACKET Prov:ZACH GARCIA 11/21/16 Tramadol HCl (Ultram) 50 Mg Tablet, 50-100 MG PO QID Y for PAIN, #60 TAB Prov:ZACH GARCIA 11/21/16 Acetaminophen (Tylenol) 325 Mg Tablet, 650 MG PO Q6HR, #100 TAB Prov:ZACH GARCIA 11/21/16 Reported Medications Zinc (Zinc) 50 Mg Tablet, 50 MG PO DAILY, TAB 11/20/16 Cholecalciferol (Vitamin D3) (Vitamin D) 5,000 Unit Capsule, 1 TAB PO DAILY 11/20/16 Amiodarone HCl (Amiodarone HCl) 200 Mg Tablet, 200 MG PO DAILY, TAB 11/20/16 Aspirin (Aspir 81) 81 Mg Tablet.dr, 1 TAB PO DAILY, #30 TAB 5 Refills 11/20/16 Carvedilol (Carvedilol) 25 Mg Tablet, 1 TAB PO BID, TAB BEST WITH FOOD. 11/20/16 Hydroxyzine HCl (Hydroxyzine HCl) 25 Mg Tablet, 1 TAB PO PM, TAB 11/20/16 Oxycodone HCl/Acetaminophen (Oxycodone-Acetaminophen 5-325) 5-325 Tablet, 1-2 TAB PO Q4H Y for PAIN, TAB 11/20/16 Cyanocobalamin (Vitamin B-12) (Vitamin B-12) 5,000 Mcg Tab.rapdis, 1 TAB PO DAILY, TAB 11/20/16 Rivaroxaban (Xarelto) 20 Mg Tablet, 1 TAB PO DAILY, #30 TAB 11 Refills 11/20/16 Discontinued Reported Medications Enalapril Maleate (Enalapril Maleate) 20 Mg Tablet, 1 TAB PO BID, TAB 11/20/16 Furosemide (Furosemide) 80 Mg Tablet, 1 TAB PO BID, #180 TAB 3 Refills 11/20/16 Allergies: Coded Allergies: No Known Drug Allergies (Verified Allergy, Unknown, 11/20/16) Uncoded Allergies: dye (Allergy, Severe, AIRWAY OBSTRUCTION, 11/21/16) cat scan dye - tongue swelled up, mouth got hot, hard time breathing, couldn't swallow Family History Family History: Mother - breast cancer, A-fib, & HTN Father - she doesn't know her biologic father Sister - breast cancer 5 grown children - 2 girls 3 boys, all healthy except one daughter had breast cancer Social History Smoking Status: Unknown if ever smoked Substance Use Type: does not use Alcohol Intake: none Marital Status: Housing: house Current Occupational Status: retired 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 [employer] Advance Directives: No DPOA for Healthcare Only Social History Comments PCP Farzad Marshall Review of Systems Constitutional: REPORTS: appetite decrease, fatigue Musculoskeletal General: pain (Right forearm, Pelvis), see HPI All Other Systems All Other Systems: Reviewed (remainder of 10-point ROS Neg.) Physical Exam General General Nourishment: well nourished, well developed Vital Signs Vital Signs Date Time Temp Pulse Resp B/P Pulse Ox O2 Delivery O2 Flow Rate FiO2 11/22/16 06:17 97.8 77 20 126/76 98 Room Air Height (Feet): 5 Height (Inches): 8.00 Eyes Brief: FOUND: EOMI, PERRL ENMT Brief: FOUND: mucosa moist, normal dentition, NOT FOUND: pharnyx erythema Neck Brief: FOUND: midline, NOT FOUND: adenopathy, carotid bruits, tracheal deviation Respiratory Brief: FOUND: clear all rodas, equal bilaterally, NOT FOUND: wheezes Cardiovascular (brief) Cardiac Brief: FOUND: regular rate, regular rhythm, NOT FOUND: murmur, pedal edema Abdomen (brief) Abdominal Brief: FOUND: BS normo active x4, soft, NOT FOUND: distended, tender Musculoskeletal (brief) Comments Orthoglass splint intact to Right forearm. Mild distal swelling to fingers. Sensation and motor intact without deficits Integumentary (brief) Integumentary Brief: FOUND: dry, pink, warm Neurologic (brief) Neurological Brief: FOUND: cranial 2-12 intact Neurologic RN Documented GCS Eye Opening: Verbal: Motor: Total: Psychiatric (brief) FOUND: alert, attentive, normal affect, oriented Laboratory Laboratory Tests Test 11/22/16 04:14 White Blood Count 3.5T/MM3 Red Blood Count 3.73M/MM3 Hemoglobin 10.4GM/DL Hematocrit 32.7% Mean Corpuscular Volume 87.7UM3 Mean Corpuscular Hemoglobin 27.9UUG Mean Corpuscular Hemoglobin Concent 31.8GM/DL RDW Standard Deviation 43.0FL Platelet Count 205T/MM3 Mean Platelet Volume 10.8UM3 Immature Granulocyte % (Auto) 0.0% Neutrophils (%) (Auto) 48.5% Lymphocytes (%) (Auto) 36.1% Monocytes (%) (Auto) 11.7% Eosinophils (%) (Auto) 3.4% Basophils (%) (Auto) 0.3% Absolute Immature Granulocyte (auto 0.00T/MM3 Absolute Neutrophils (auto) 1.7T/MM3 Absolute Lymphocytes (auto) 1.3T/MM3 Absolute Monocytes (auto) 0.4T/MM3 Absolute Eosinophils (auto) 0.1T/MM3 Absolute Basophils (auto) 0.0T/MM3 Turbidity < 20 Sodium Level 141MEQ/L Potassium Level 4.3MEQ/L Chloride Level 104MEQ/L Carbon Dioxide Level 28MEQ/L Anion Gap 9MEQ/L Blood Urea Nitrogen 21.0MG/DL Creatinine 1.0MG/DL Glomerular Filtration Rate Calc 54 BUN/Creatinine Ratio 21RATIO Glucose Level 90MG/DL Calculated Osmolality 274MOSM/KG Calcium Level 8.9MG/DL Icterus Index < 2 Chemistry Specimen Hemolysis < 15 Impression/Recommendation Problems: (1) Pelvis fracture, right Status: Acute Qualifiers: Encounter type: initial encounter Fracture type: closed Qualified Codes: S32.9XXA - Fracture of unspecified parts of lumbosacral spine and pelvis, initial encounter for closed fracture (2) Distal radius fracture, right Status: Acute Qualifiers: Fracture type: closed (3) Chronic anticoagulation Status: Chronic Assessment & Plan: Xarelto (4) CHF (congestive heart failure) Status: Chronic (5) Osteopenia Status: Chronic (6) Atrial fibrillation Status: Chronic (7) DJD (degenerative joint disease) Status: Chronic (8) CAD (coronary artery disease) Status: Chronic (9) HTN (hypertension) Status: Chronic Recommendation 11/22/16 Agree with admission to IRU for pain management, increased function and strength improvement. Percocet and tramadol as needed for pain control. Continue with chronic anticoagulation, Xarelto 20 grams daily Monitor hemoglobin regularly Miralax daily for bowel motivation Continue routine cardiac medications including amiodarone, Coreg. Monitor blood pressure and heart rate. Encourage work with PT and OT for ongoing strengthening and improve function Hospital services will continue to follow patient medically manage her existing comorbidities during her stay in the IRU unit. At time of discharge medical care will return to primary care provider, RAUDEL Rider MD 11/22/16 1512: Past Medical History Current Medications Home Meds Active Scripts Furosemide (Furosemide) 80 Mg Tablet, 1 TAB PO BID, #180 TAB 3 Refills Prov:DARIA LIMA APRN 11/22/16 Polyethylene Glycol 3350 (Healthylax) 17 Gm Powd.pack, 17 G PO DAILY, #30 PACKET Prov:ZACH GARCIA 11/21/16 Tramadol HCl (Ultram) 50 Mg Tablet, 50-100 MG PO QID Y for PAIN, #60 TAB Prov:ZACH GARCIA 11/21/16 Acetaminophen (Tylenol) 325 Mg Tablet, 650 MG PO Q6HR, #100 TAB Prov:ZACH GARCIA 11/21/16 Reported Medications Zinc (Zinc) 50 Mg Tablet, 50 MG PO DAILY, TAB 11/20/16 Cholecalciferol (Vitamin D3) (Vitamin D) 5,000 Unit Capsule, 1 TAB PO DAILY 11/20/16 Amiodarone HCl (Amiodarone HCl) 200 Mg Tablet, 200 MG PO DAILY, TAB 11/20/16 Aspirin (Aspir 81) 81 Mg Tablet.dr, 1 TAB PO DAILY, #30 TAB 5 Refills 11/20/16 Carvedilol (Carvedilol) 25 Mg Tablet, 1 TAB PO BID, TAB BEST WITH FOOD. 11/20/16 Hydroxyzine HCl (Hydroxyzine HCl) 25 Mg Tablet, 1 TAB PO PM, TAB 11/20/16 Oxycodone HCl/Acetaminophen (Oxycodone-Acetaminophen 5-325) 5-325 Tablet, 1-2 TAB PO Q4H Y for PAIN, TAB 11/20/16 Cyanocobalamin (Vitamin B-12) (Vitamin B-12) 5,000 Mcg Tab.rapdis, 1 TAB PO DAILY, TAB 11/20/16 Rivaroxaban (Xarelto) 20 Mg Tablet, 1 TAB PO DAILY, #30 TAB 11 Refills 11/20/16 Discontinued Reported Medications Enalapril Maleate (Enalapril Maleate) 20 Mg Tablet, 1 TAB PO BID, TAB 11/20/16 Furosemide (Furosemide) 80 Mg Tablet, 1 TAB PO BID, #180 TAB 3 Refills 11/20/16 Allergies: Coded Allergies: No Known Drug Allergies (Verified Allergy, Unknown, 11/20/16) Uncoded Allergies: dye (Allergy, Severe, AIRWAY OBSTRUCTION, 11/21/16) cat scan dye - tongue swelled up, mouth got hot, hard time breathing, couldn't swallow Impression/Recommendation Problems: (1) Pelvis fracture, right Status: Acute Qualifiers: Encounter type: initial encounter Fracture type: closed Qualified Codes: S32.9XXA - Fracture of unspecified parts of lumbosacral spine and pelvis, initial encounter for closed fracture Assessment & Plan: Right superior/inferior pubic rami fractures. (2) Distal radius fracture, right Status: Acute Qualifiers: Fracture type: closed (3) Chronic anticoagulation Status: Chronic Assessment & Plan: Xarelto (4) CHF (congestive heart failure) Status: Chronic (5) Osteopenia Status: Chronic (6) Atrial fibrillation Status: Chronic (7) DJD (degenerative joint disease) Status: Chronic (8) CAD (coronary artery disease) Status: Chronic (9) HTN (hypertension) Status: Chronic Impression I have independently evaluated and examined this patient. I reviewed the chart, the patient's history, and the PRESSROOM FOREMAN's documented findings as above. We discussed and formulated the assessment and plan as above with additions as below: In addition to above problems patient has history of DJD and CHF, unknown ejection fraction. Patient known from acute hospitalization where creatinine was 1.6 on admission with baseline of 1.04 in July. She's had no recent modifications in diuretic dose and denies dyspnea or excessive fluid retention. She's had some minor nausea with tramadol but is tolerating it when taken with crackers. She reports having a good workout with physical therapy this morning and denies lightheadedness, dyspnea, or chest pain. Mild edema in the right fingers-improving over the past couple of days, sensation retained. Cardiac rhythm regular with 2-3/6 systolic murmur heard throughout the precordium; occasional ectopic beats present. Respirations nonlabored with clear lung rodas anteriorly. No lower extremity edema. Agree with resumption of Xarelto since surgery is apparently not being pursued. Continue bowel regimen. Monitor renal function intermittently. DARIA LIMA APRN Nov 22, 2016 10:17 RAUDEL LOCKETT MD Nov 22, 2016 15:12
--- NOTE | 2016-11-22 11:24 | NUR ---
CM THIS WORKER VISITED PT IN ROOM, INTRODUCED SELF AND ROLE OF CASE MANAGEMENT. PT STATED SHE HAS GOOD FAMILY SUPPORT, HER HAS BEEN VISITING FREQUENTLY. PT STATED HER FAMILY LIVE NEARBY. PT DENIED NEEDING HOME HEALTH, PT STATED HER AND SON WILL BE ABLE TO HELP HER OUT ONCE SHE D/C. PT DENIED NEEDING MEDICAL EQUIPMENT, PT STATED HER DAUGHTER HAS A CRUTCH AND WALKER FOR HER IF SHE NEEDS IT ONCE SHE D/C. PT STATED SHE IS GOING ON A 38 DAY CRUISE IN MARCH, SO SHE IS EAGER TO GET BETTER. PT DENIED ANY NEEDS AT THIS TIME AND WAS ENCOURAGED TO CYBER LEGAL ADVISOR IF ANY QUESTIONS/CONCERNS ARISE. Addendum: 11/22/16 at 1125 by DIALLO DELGADO Amended: Links added.
[2016-11-22 16:49] VITALS: BP 125/74; PULSE 77; RESP 16; TEMP 97.7; O2SAT 95
[2016-11-22] MEDS ORDERED: HYDROCODONE/APAP 5 mg/325 mg TABLET PO ONE (17:15)
--- NOTE | 2016-11-22 17:25 | HPPDOC ---
HPI Date DATE: 11/22/16 TIME: 17:14 General Chief Complaint: pelvic fracture, right distal radius fracture History of Present Illness 76 yo female with pubic ramus fracture which occurred on 11/17/16. She was unable to manage pain at home adn had to be admitted by ortho. SHe ultimately could not manage adl's due to the pain, was referred to IRU for evaluation. Past Medical History Past Medical History Atrial fibrillation Coronary artery disease Hypertension Surgical History Patient's Surgical History: PPM Heart catheterization with stent Ablation for A-fib - unsuccessfuly Left rotator cuff repair Current Medications Home Meds Active Scripts Furosemide (Furosemide) 80 Mg Tablet, 1 TAB PO BID, #180 TAB 3 Refills Prov:DARIA LIMA APRN 11/22/16 Polyethylene Glycol 3350 (Healthylax) 17 Gm Powd.pack, 17 G PO DAILY, #30 PACKET Prov:ZACH GARCIA 11/21/16 Tramadol HCl (Ultram) 50 Mg Tablet, 50-100 MG PO QID Y for PAIN, #60 TAB Prov:ZACH GARCIA 11/21/16 Acetaminophen (Tylenol) 325 Mg Tablet, 650 MG PO Q6HR, #100 TAB Prov:ZACH GARCIA 11/21/16 Reported Medications Zinc (Zinc) 50 Mg Tablet, 50 MG PO DAILY, TAB 11/20/16 Cholecalciferol (Vitamin D3) (Vitamin D) 5,000 Unit Capsule, 1 TAB PO DAILY 11/20/16 Amiodarone HCl (Amiodarone HCl) 200 Mg Tablet, 200 MG PO DAILY, TAB 11/20/16 Aspirin (Aspir 81) 81 Mg Tablet.dr, 1 TAB PO DAILY, #30 TAB 5 Refills 11/20/16 Carvedilol (Carvedilol) 25 Mg Tablet, 1 TAB PO BID, TAB BEST WITH FOOD. 11/20/16 Hydroxyzine HCl (Hydroxyzine HCl) 25 Mg Tablet, 1 TAB PO PM, TAB 11/20/16 Oxycodone HCl/Acetaminophen (Oxycodone-Acetaminophen 5-325) 5-325 Tablet, 1-2 TAB PO Q4H Y for PAIN, TAB 11/20/16 Cyanocobalamin (Vitamin B-12) (Vitamin B-12) 5,000 Mcg Tab.rapdis, 1 TAB PO DAILY, TAB 11/20/16 Rivaroxaban (Xarelto) 20 Mg Tablet, 1 TAB PO DAILY, #30 TAB 11 Refills 11/20/16 Discontinued Reported Medications Enalapril Maleate (Enalapril Maleate) 20 Mg Tablet, 1 TAB PO BID, TAB 11/20/16 Furosemide (Furosemide) 80 Mg Tablet, 1 TAB PO BID, #180 TAB 3 Refills 11/20/16 Allergies: Coded Allergies: No Known Drug Allergies (Verified Allergy, Unknown, 11/20/16) Uncoded Allergies: dye (Allergy, Severe, AIRWAY OBSTRUCTION, 11/21/16) cat scan dye - tongue swelled up, mouth got hot, hard time breathing, couldn't swallow Family History Family History: Mother - breast cancer, A-fib, & HTN Father - she doesn't know her biologic father Sister - breast cancer 5 grown children - 2 girls 3 boys, all healthy except one daughter had breast cancer Social History Smoking Status: Unknown if ever smoked Substance Use Type: does not use Alcohol Intake: none Marital Status: Housing: house Current Occupational Status: retired 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 [employer] Advance Directives: No DPOA for Healthcare Only Review of Systems Cardiovascular orthopnea Musculoskeletal General: pain, see HPI, tenderness, weakness Neurological General: weakness Psychiatric Psychiatric: depression Physical Exam General General Nourishment: well nourished, well developed General Body Habitus: well groomed Vital Signs Vital Signs Date Time Temp Pulse Resp B/P Pulse Ox O2 Delivery O2 Flow Rate FiO2 11/22/16 16:49 97.7 77 16 125/74 95 Room Air Height (Feet): 5 Height (Inches): 8.00 Eyes Brief: FOUND: EOMI, PERRL ENMT Brief: FOUND: TM clear, TM good light reflex Neck Brief: NOT FOUND: adenopathy, carotid bruits, thyromegaly Respiratory Brief: FOUND: clear all rodas, equal bilaterally Cardiovascular (brief) Cardiac Brief: FOUND: regular rate, regular rhythm Capillary Refill: <2 sec Abdomen (brief) Abdominal Brief: FOUND: BS normo active x4, soft, tender Musculoskeletal (brief) Musculoskeletal Brief: FOUND: loss of motion, tenderness Comments Suprapubic tenderness and inability to walk without support. Neurologic RN Documented GCS Eye Opening: Verbal: Motor: Total: Laboratory Laboratory Tests Test 11/22/16 04:14 White Blood Count 3.5T/MM3 Red Blood Count 3.73M/MM3 Hemoglobin 10.4GM/DL Hematocrit 32.7% Mean Corpuscular Volume 87.7UM3 Mean Corpuscular Hemoglobin 27.9UUG Mean Corpuscular Hemoglobin Concent 31.8GM/DL RDW Standard Deviation 43.0FL Platelet Count 205T/MM3 Mean Platelet Volume 10.8UM3 Immature Granulocyte % (Auto) 0.0% Neutrophils (%) (Auto) 48.5% Lymphocytes (%) (Auto) 36.1% Monocytes (%) (Auto) 11.7% Eosinophils (%) (Auto) 3.4% Basophils (%) (Auto) 0.3% Absolute Immature Granulocyte (auto 0.00T/MM3 Absolute Neutrophils (auto) 1.7T/MM3 Absolute Lymphocytes (auto) 1.3T/MM3 Absolute Monocytes (auto) 0.4T/MM3 Absolute Eosinophils (auto) 0.1T/MM3 Absolute Basophils (auto) 0.0T/MM3 Turbidity < 20 Sodium Level 141MEQ/L Potassium Level 4.3MEQ/L Chloride Level 104MEQ/L Carbon Dioxide Level 28MEQ/L Anion Gap 9MEQ/L Blood Urea Nitrogen 21.0MG/DL Creatinine 1.0MG/DL Glomerular Filtration Rate Calc 54 BUN/Creatinine Ratio 21RATIO Glucose Level 90MG/DL Calculated Osmolality 274MOSM/KG Calcium Level 8.9MG/DL Icterus Index < 2 Chemistry Specimen Hemolysis < 15 Assessment & Plan Problems: (1) Myopathy Assessment & Plan: Muscle weakness developing from disuse due to pain. PT and OT will work with pt to increase function and strength. (2) Atrial fibrillation Status: Chronic Assessment & Plan: managed by medical. (3) Pelvis fracture, right Status: Acute Qualifiers: Encounter type: initial encounter Fracture type: closed Qualified Codes: S32.9XXA - Fracture of unspecified parts of lumbosacral spine and pelvis, initial encounter for closed fracture Assessment & Plan: Pain management in IRU, strength and stamina to be improved with PT and OT support. DVT Prophylaxis: SCD'S Code Status Full Code Interventions to Obtain Goals PT Treatment Plan: Therapeutic Exercise, Gait Training, Functional Activities , Patient/Family Education, Balance/Proprioception OT Treatment Plan: ADL's (basic care), Ther. Exercise for ADL's, UE Functional Training, Balance Training, Pt./Family Education, IADL's Hospital Course Summary Disclaimer The hospital course summary below is not to be considered part of the above Progress Note. LANA ELDER MD Nov 22, 2016 17:21
--- NOTE | 2016-11-22 17:27 | IRU24PDOC ---
24 Hour Post Admission Eval Relevant Changes Relevant Changes: No I have reviewed the patient's information and concur with the finding and results of the pre-admission screen. Certification I certify the patient for rehabilitation. Patient Condition Prior Medical Conditions: (1) Myopathy Additional Information: Muscle weakness developing from disuse due to pain. PT and OT will work with pt to increase function and strength. (2) Atrial fibrillation Status: Chronic Additional Information: managed by medical. (3) Pelvis fracture, right Status: Acute Additional Information: Pain management in IRU, strength and stamina to be improved with PT and OT support. Current Medical Conditions: (1) Myopathy Additional Information: Muscle weakness developing from disuse due to pain. PT and OT will work with pt to increase function and strength. (2) Atrial fibrillation Status: Chronic Additional Information: managed by medical. (3) Pelvis fracture, right Status: Acute Additional Information: Pain management in IRU, strength and stamina to be improved with PT and OT support. Prior Functional Condition Lives With: Spouse Residence Type: Private home/apartment Assistive Devices: No Assistive Device Prior Functional Status: Indep. at home or school Current Functional Status Failed Alternative Therapy Tri: Yes, Arrived from acute care Patient Requirements * Patient has been determined to have significant functional limitations requiring at least two therapy disciplines. * Rehabilitation medical practitioner will provide admission approval, assessment and oversight and program coordination at least daily. * Intensive rehabilitative nursing services on site and available 24 hours a day. * The treatment plan will be developed within 24 hours of admission. * Interdisciplinary and goal oriented treatment by professional nursing, rn social services, and rehabilitation therapist. * Interdisciplinary team meeting weekly inclusive of ongoing comprehensive discharge planning. First team meeting by seven. Weekly meetings to follow. * Rehab Physician is the team meeting leader. * Pharmacy and diagnostic services will be available. * Ongoing comprehensive rehab program with at least 2 disciplines and greater than or equal to 3 hours a day, 5 days a week. Limitations require: limited mobility, ADL impairment Physical Therapy Minutes: 90 Occupational Therapy Minutes: 90 Therapy The patient is to receive therapy at least 5 days a week. Current Functional Status: Using assistive device PT Treatment Plan: Therapeutic Exercise, Gait Training, Functional Activities , Patient/Family Education, Balance/Proprioception Treatment Plan Frequency: five times per week Treatment Plan Duration: two weeks Plan of Care Comment: 6x/wk for 1st wk; 5x/wk for 2nd and 3rd wks. OT Treatment Plan: ADL's (basic care), Ther. Exercise for ADL's, UE Functional Training, Balance Training, Pt./Family Education, IADL's OT Treatment Plan Frequency: five times per week OT Treatment Plan Duration: three weeks ROM Comment: R LE WNL passively, limited actively d/t pain L LE WNL See OT for UEs. Muscle Weakness Location: Right Lower Extremity Complication/Comorbidities Patient Complication Risk: (1) Myopathy Comments: Muscle weakness developing from disuse due to pain. PT and OT will work with pt to increase function and strength. (2) Atrial fibrillation Status: Chronic Comments: managed by medical. (3) Pelvis fracture, right Status: Acute Comments: Pain management in IRU, strength and stamina to be improved with PT and OT support. Impact on Functional Outcomes Diminished ability to improve on her own. With PT and OT she should be able to return to prefracture function. Barriers to Discharge: weakness, endurance, balance, pain control Plan to Avoid Complications Plan to Avoid Complications The patient cannot receive this care in a lesser intensive setting such as Nursing Home or Outpatient Therapy due to the patient requiring the following Myopathy which is progressive. Also chf. The patient requires oversight by a rehabilitation physician to manage their rehabilitation treatment plan and the multidisciplinary approach to care that can only be provided in an IRF and requires a multidisciplinary approach to care , provided by professional PTs, OTs, STs, dieticians, RTs, rehabilitation nurses and is not available in lesser levels of care. The frequency and duration for therapy, as recommended by the professional Rehabilitation therapists, meet the patient's initial rehabilitation treatment plan needs and will be further evaluated on a weekly basis for progress and/or changes needed. Problem Qualifiers (1) Pelvis fracture, right: Encounter type: initial encounter Fracture type: closed Qualified Codes: S32.9XXA - Fracture of unspecified parts of lumbosacral spine and pelvis, initial encounter for closed fracture LANA ELDER MD Nov 22, 2016 17:27
[2016-11-22] MEDS: RIVAROXABAN 20 MG TABLET PO SCH (18:06)
--- NOTE | 2016-11-22 19:00 | NUR ---
SHIFT SUMMARY PATIENT ALERT AND ORIENTED X 3. COOPERATIVE. C/O PAIN TO R ARM, PELVIS AND R SHOULDER THROUGHOUT DAY. PAIN RATED BETWEEN A 3-6. SCHEDULED TYLENOL GIVEN, PATIENT REFUSED ADDITIONAL PAIN MED MOST OF SHIFT, HOWEVER AGREED TO TAKE ONE TIME DOSE NORCO. PATIENT UP WITH ONE WITH GAIT BELT AND WALKER. R ARM IN SPLINT AND RANDELL WRAP. VITALS STABLE. NO BM TODAY. WILL CONT TO MONITOR.
[2016-11-22 22:27] VITALS: PULSE 77; RESP 16
--- NOTE | 2016-11-22 23:27 | NUR ---
Chart Check 24 hour chart check completed
--- NOTE | 2016-11-22 23:28 | NUR ---
Status Patient is alert and oriented times three, pleasant and cooperative. She is in her bed with side rails up times two, bed alarm on, SCDs on and call light within reach. She had pain to her right wrist in fractured area, which she thought may have been agrivated by her trying to move her fingers around and straitening them. She has swelling and bruising to that hand. Splint and linda wrap are intact on arm. Patient had her scheduled Tylenol. She states she does not want woke up at three for scheduled Tylenol.
[2016-11-23 00:21] VITALS: BP 126/72; PULSE 70; TEMP 97.9; O2SAT 96
[2016-11-23] MEDS: ACETAMINOPHEN 325 MG TABLET PO SCH ×4 (03:00→21:24)
[2016-11-23 05:21] LABS: BASOPHILS % (AUTO) 0.6 % (0-2); EOSINOPHILS # (AUTO) 0.1 T/MM3 (0-0.5); EOSINOPHILS % (AUTO) 3.6 % (0-4); HCT - HEMATOCRIT 34.2 % (36-46); HGB - HEMOGLOBIN 10.9 GM/DL (12-16); LYMPHOCYTES # (AUTO) 1.3 T/MM3 (1-4.8); LYMPHOCYTES % (AUTO) 36.6 % (23-45); MEAN CORPUSCULAR HGB 27.8 UUG (26-34); MEAN CORPUSCULAR HGB CONC(MCHC 31.9 GM/DL (31-37); MEAN CORPUSCULAR VOLUME 87.2 UM3 (80-100); MEAN PLATELET VOLUME 10.4 UM3 (9.4-12.4); MONOCYTES # (AUTO) 0.4 T/MM3 (0-0.8); MONOCYTES % (AUTO) 11.6 % (0-9.0); NEUTROPHILS #(AUTO)-ABSOLUTE 1.7 T/MM3 (1.8-7.7); NEUTROPHILS % (AUTO) 47.6 % (33-66); RED BLOOD COUNT 3.92 M/MM3 (4.00-5.20); WBC - WHITE BLOOD COUNT 3.6 T/MM3 (4.5-11.0)
--- NOTE | 2016-11-23 05:41 | NUR ---
Summary Patient has been sleeping and has not been up to the restroom again after going to bed. No changes since last note.
[2016-11-23 08:00] VITALS: BP 145/79; PULSE 86; RESP 16; TEMP 98.3; O2SAT 95
[2016-11-23] MEDS: CHOLECALCIFEROL 5,000 UNIT CAPSULE PO SCH (08:38)
[2016-11-23] MEDS: CARVEDILOL 25 MG TABLET PO SCH ×2 (08:38→17:38)
[2016-11-23] MEDS: POLYETHYL.GLYCOL 3350 PACKET 17gm PO SCH (08:38)
[2016-11-23] MEDS: CYANOCOBALAMIN (B-12) 500mcg TABLET PO SCH (08:38)
[2016-11-23] MEDS: AMIODARONE 200 MG TABLET PO SCH (08:38)
[2016-11-23] MEDS: ASPIRIN *EC* 81mg TABLET PO SCH (08:38)
[2016-11-23] MEDS: DOCUSATE SODIUM 100 MG CAPSULE PO SCH ×2 (08:38→21:24)
[2016-11-23] MEDS: RIVAROXABAN 20 MG TABLET PO SCH (08:38)
[2016-11-23] MEDS: ZINC 50 MG PO SCH (08:38)
[2016-11-23] MEDS: TRAMADOL 50 MG TABLET PO PRN (10:21)
--- NOTE | 2016-11-23 11:33 | DI ---
Indication: ITS.REASON: check placement PROCEDURE: WRIST RIGHT 2 VIEW: Encounter: Initial Comparison: Radiographs dated November 20, 2016 Findings: Splinted distal radial fracture which appears stable in alignment with mild impaction. Possible ulnar styloid fracture. Splinting material obscures fine bony detail. No new fracture or dislocation. Impression: Stable alignment of the splinted distal radial fracture. .
--- NOTE | 2016-11-23 12:42 | PDIRUTEAM ---
Multidisciplinary Team Meeting Nursing Hx Incontinence: No Bladder Goal: 7+ Complete [place] Geller Y/N: No Bladder Continent or Incontine: Continent Incontinent Product Used: Patient's Own Underwear Number of Times Incontinent of: 0 Cleaning Ability-Bladder: 5 Supervision/Setup Bladder Incontinence Managemen: 0 Activity Does Not Occur Bowel Goal: 7+ Complete [place] Colostomy Y/N: No Bowel Incontinent/Continent: Continent Bowel Number of Accidents: 0 Number of times Incontinent of: 0 Cleaning Ability-Bowel: 0 Activity Does Not Occur Toileting Ability: 5 Supervision/Setup Vital Signs Vital Signs Date Time Temp Pulse Resp B/P Pulse Ox O2 Delivery O2 Flow Rate FiO2 11/23/16 08:00 98.3 86 16 145/79 95 Room Air Current Medications Current Medications Medications (Trade) Dose Ordered Sig/Tarun Route PRN Reason Start Time Stop Time Status Last Admin Dose Admin Docusate Sodium (Colace) 100 mg BID PO 11/21/16 21:00 11/23/16 08:38 Acetaminophen (Tylenol Regular Strength) 650 mg Q6HR PO 11/21/16 21:00 11/23/16 08:40 Amiodarone HCl (Pacerone) 200 mg DAILY PO 11/22/16 09:00 11/23/16 08:38 Aspirin (Ecotrin) 81 mg DAILY PO 11/22/16 09:00 11/23/16 08:38 Carvedilol (Coreg) 25 mg BID PO 11/21/16 21:00 11/22/16 06:20 DC 11/21/16 21:27 Cholecalciferol (Vit. D3) 5,000 unit DAILY PO 11/22/16 09:00 11/23/16 08:38 Cyanocobalamin (Vit. B-12) 500 mcg DAILY PO 11/22/16 09:00 11/23/16 08:38 Polyethylene Glycol (Miralax) 17 g DAILY PO 11/22/16 09:00 11/23/16 08:38 Tramadol HCl (Ultram) 1-2 tabs QID PRN PO PAIN 11/21/16 20:45 11/23/16 10:21 Zinc Gluconate (ZINC 50 mg) 50 mg DAILY PO 11/22/16 09:00 11/23/16 08:38 Rivaroxaban (Xarelto) 20 mg DAILY PO 11/22/16 17:30 11/23/16 08:38 Carvedilol (Coreg) 25 mg BIDBS PO 11/22/16 08:00 11/23/16 08:38 Hydroxyzine HCl (Atarax) 25 mg BID PRN PO 11/22/16 20:00 11/22/16 09:30 Comments fPain controlled with meds. Some edema ot right hand. Elevation and ice helping. Physical Therapy Bed Transfer Ability: 3 Moderate Assistance Bed Transfer Assistance Needed: 1 Person Chair Transfer Ability: 4 Minimal Assistance Overall Wheelchair Transfer Ab: 4 Minimal Assistance Overall Toilet / Commode Trans: 4 Minimal Assistance Ambulation Ability: 2 Maximum Assistance Ambulation Distance: 97 Comments Improving strength and FIMS. She is cooperatiive. Poor apetite. Occupational Therapy Grooming Ability: 4 Minimal Assistance Bathing Ability: 5 Supervision/Setup Upper Body Dressing Ability: 5 Supervision/Setup Lower Body Dressing Ability: 4 Minimal Assistance Lower Body Dressing Assistance: 1 Person Toileting Assistance Needed: 1 Person Comments FIMS 4-5. improved steadiness with bathing. Care Plan Interventions/Goals Will require platform walker Pt believes she has a "hairline" fracture in humerous -- we need to speak with ortho. [facility] LANA ELDER MD Nov 23, 2016 12:42
[2016-11-23 16:15] VITALS: BP 137/76; PULSE 74; RESP 18; TEMP 98.2; O2SAT 96
--- NOTE | 2016-11-23 16:51 | DI ---
Indication: ITS.REASON: eval for humerus fracture PROCEDURE: HUMERUS RIGHT 2 VIEW: Encounter: Initial Comparison: None Findings: There is no acute fracture, dislocation or malalignment identified. Chronic rotator cuff tear. Mild acromioclavicular degenerative change. Impression: No acute osseous abnormality. .
--- NOTE | 2016-11-23 18:34 | NUR ---
SHIFT SUMMARY PT HAS BEEN PLEASANT AND COOPERATIVE. PT HAS COMPLAINED OF SOME PAIN IN HER ARM AND PELVIS AT 3-7/10 TODAY. PT HAS WORKED WITH THERAPY. HAS BEEN OUT TO DINING ROOM FOR MEALS. AMBULATES WITH PLATFORM WALKER AND GAIT BELT.
[2016-11-23 19:35] VITALS: BP 126/68; PULSE 73; RESP 14; TEMP 98.2; O2SAT 96
[2016-11-23 19:57] VITALS: PULSE 74; RESP 18; O2SAT 96
[2016-11-23 22:58] VITALS: PULSE 74; RESP 18
[2016-11-24] MEDS: ACETAMINOPHEN 325 MG TABLET PO SCH ×4 (03:00→20:55)
--- NOTE | 2016-11-24 05:00 | NUR ---
Chart Check 24 hour chart check completed
--- NOTE | 2016-11-24 05:52 | NUR ---
Summary Patient is sleeping in her bed with hand rails up times two, bed alarm on and call light within reach. She is pleasant and cooperative, alert and oriented. She ambulates to and from restroom with FWW with platform and gait belt. Adán wrap and sling are applied to right arm. Fingers continue to have swelling and bruising. She has reported some pain to that wrist, and less pain to her pelvis, but has denied the need for PRN pain medication.
[2016-11-24 08:56] VITALS: BP 141/84; PULSE 81; RESP 16; TEMP 98.5; O2SAT 98
[2016-11-24] MEDS: RIVAROXABAN 20 MG TABLET PO SCH (09:06)
[2016-11-24] MEDS: DOCUSATE SODIUM 100 MG CAPSULE PO SCH ×2 (09:06→20:54)
[2016-11-24] MEDS: POLYETHYL.GLYCOL 3350 PACKET 17gm PO SCH (09:06)
[2016-11-24] MEDS: CARVEDILOL 25 MG TABLET PO SCH ×2 (09:06→17:44)
[2016-11-24] MEDS: CHOLECALCIFEROL 5,000 UNIT CAPSULE PO SCH (09:06)
[2016-11-24] MEDS: ZINC 50 MG PO SCH (09:06)
[2016-11-24] MEDS: CYANOCOBALAMIN (B-12) 500mcg TABLET PO SCH (09:06)
[2016-11-24] MEDS: AMIODARONE 200 MG TABLET PO SCH (09:06)
[2016-11-24] MEDS: ASPIRIN *EC* 81mg TABLET PO SCH (09:06)
[2016-11-24] MEDS: TRAMADOL 50 MG TABLET PO PRN (10:30)
[2016-11-24 16:44] VITALS: BP 141/74; PULSE 99; RESP 14; TEMP 98.2; O2SAT 96
--- NOTE | 2016-11-24 19:00 | NUR ---
SHIFT SUMMARY PATIENT ALERT AND ORIENTED. C/O PAIN IN R ARM AND PELVIS INTERMITTENTLY THROUGHOUT DAY, SCHEDULED TYLENOL GIVEN AND ONE DOSE OF PRN PAIN MED. PATIENT REPORTED PAIN AT A TOLERABLE LEVEL. WILL CONT TO MONITOR.
[2016-11-24 19:53] VITALS: BP 125/79; PULSE 73; RESP 18; TEMP 98.2; O2SAT 96
[2016-11-24] MEDS ORDERED: FUROSEMIDE 80 MG TABLET PO SCH (22:15)
[2016-11-25] MEDS: ACETAMINOPHEN 325 MG TABLET PO SCH ×4 (03:00→20:44)
--- NOTE | 2016-11-25 05:38 | NUR ---
Chart Check 24 hour chart check completed
--- NOTE | 2016-11-25 06:48 | NUR ---
Summary Henna had a good night. She was concerned last night about not taking her lasix because her stomach was feeling full and urine was concentrated. She reported having to go to hospital for IV Lasix in the past. Lasix was on her home medications. Called Dr Gilmore with lab values and report. He ordered the Lasix. Read Dr. Penaloza intervention note for details. She was up times two during the night, but does not like to call to use the restroom, which she had to do due to Lasix. The last time she waited to long and was incontinent on the way to the toilet, having a urine accident on the floor. She has been pleasant and cooperative and is now back in bed with side rails up times two, bed alarm on and call light within reach.
[2016-11-25 08:00] VITALS: BP 122/68; PULSE 81; RESP 16; TEMP 98.2; O2SAT 96
[2016-11-25] MEDS: DOCUSATE SODIUM 100 MG CAPSULE PO SCH ×2 (09:09→20:45)
[2016-11-25] MEDS: CARVEDILOL 25 MG TABLET PO SCH ×2 (09:09→17:38)
[2016-11-25] MEDS: ASPIRIN *EC* 81mg TABLET PO SCH (09:09)
[2016-11-25] MEDS: POLYETHYL.GLYCOL 3350 PACKET 17gm PO SCH (09:09)
[2016-11-25] MEDS: ZINC 50 MG PO SCH (09:10)
[2016-11-25] MEDS: AMIODARONE 200 MG TABLET PO SCH (09:10)
[2016-11-25] MEDS: CYANOCOBALAMIN (B-12) 500mcg TABLET PO SCH (09:10)
[2016-11-25] MEDS: RIVAROXABAN 20 MG TABLET PO SCH (09:10)
[2016-11-25] MEDS: CHOLECALCIFEROL 5,000 UNIT CAPSULE PO SCH (09:10)
[2016-11-25] MEDS: FUROSEMIDE 80 MG TABLET PO SCH ×2 (09:13→17:38)
[2016-11-25 16:19] VITALS: BP 128/70; PULSE 75; RESP 20; TEMP 98.2; O2SAT 96
--- NOTE | 2016-11-25 18:39 | NUR ---
SHIFT SUMMARY PATIENT ALERT AND ORIENTED X3, C/O PAIN 4/10 IN PELVIS AND R ARM/SHOULDER. SCHEDULED TYLENOL GIVEN, PATIENT REPORTS ADEQUATE PAIN RELIEF. UP WITH ONE ASSIST WITH GAITBELT AND WALKER. R ARM IN [place]ANDELL BANDAGE AND SPLINT. VITALS STABLE. CONTINENT OF BLADDER. NO BM TODAY, PATIENT DRANK A PRUNE JUICE AT BREAKFAST. PATIENT WAS ASKED IF SHE WANTED SOMETHING STRONGER FOR BOWELS. PATIENT WANTED TO FIRST TRY ANOTHER PRUNE JUICE AT DINNER. WILL CONT TO MONITOR.
[2016-11-25 19:27] VITALS: BP 109/65; PULSE 73; RESP 22; TEMP 97.9; O2SAT 96
[2016-11-25] MEDS: TRAMADOL 50 MG TABLET PO PRN (20:45)
--- NOTE | 2016-11-25 22:04 | PNPDOC ---
IRU Subjective Date DATE: 11/25/16 TIME: 22:02 Subjective Pt out to commons area for meals today. She had concern over hip pain with movement, but no other complaint.s IRU Objective Vital Signs Vital signs Vital Signs Date Time Temp Pulse Resp B/P Pulse Ox O2 Delivery O2 Flow Rate FiO2 11/25/16 19:27 97.9 73 22 109/65 96 Room Air Height (Feet): 5 Height (Inches): 8.00 Weight (Kilograms): 76.900 General General Appearance: Alert, Orientated x 2 Respiratory (Brief) Respiratory: FOUND: clear all rodas, equal bilaterally Cardiovascular (Brief) Cardiac: FOUND: regular rate (no irregularity heard today), regular rhythm Assessment & Plan Problems: (1) Myopathy Assessment & Plan: improvement over weekend, increased mobility, still needs to improve stamina. Cont with PT and OT plan (2) Atrial fibrillation Status: Chronic Assessment & Plan: medical management. (3) Pelvis fracture, right Status: Acute Qualifiers: Encounter type: initial encounter Fracture type: closed Qualified Codes: S32.9XXA - Fracture of unspecified parts of lumbosacral spine and pelvis, initial encounter for closed fracture Assessment & Plan: Weight bearing per ortho, pt improving mobility. Code Status Full Code Interventions to Obtain Goals PT Treatment Plan: Therapeutic Exercise, Gait Training, Functional Activities , Patient/Family Education, Balance/Proprioception OT Treatment Plan: Ther. Exercise for ADL's, IADL's Hospital Course Summary Disclaimer The hospital course summary below is not to be considered part of the above Progress Note. LANA ELDER MD Nov 25, 2016 22:04
--- NOTE | 2016-11-26 00:33 | NUR ---
Chart Check 24 hour chart check completed
[2016-11-26] MEDS: ACETAMINOPHEN 325 MG TABLET PO SCH ×4 (03:00→21:33)
--- NOTE | 2016-11-26 06:16 | NUR ---
Summary Patient is alert and oriented times three. She has been up a few times to the restroom. She ambulates with FWW and gait belt, manages her own clothing and performs her own hygiene. She changed into her gown independently after it was brought to her. She is able to get herself in and out of bed. She did report some extra pain to her right arm at bed time and asked for PRN Ultram. Adán wrap on arm was starting to lose its elasticity so I replaced it. She splint under the Adán was intact. Swelling and bruising to that right hand has improved but not resolved. She refused her SCDs, but she does report walking quite a bit during the day. She is currently in bed with side rails up times two, bed alarm on and call light within reach.
[2016-11-26 08:00] VITALS: BP 124/70; PULSE 88; RESP 16; TEMP 98.7; O2SAT 98
[2016-11-26] MEDS: DOCUSATE SODIUM 100 MG CAPSULE PO SCH ×2 (08:09→21:32)
[2016-11-26] MEDS: CARVEDILOL 25 MG TABLET PO SCH ×2 (08:09→17:02)
[2016-11-26] MEDS: CYANOCOBALAMIN (B-12) 500mcg TABLET PO SCH (08:09)
[2016-11-26] MEDS: ZINC 50 MG PO SCH (08:09)
[2016-11-26] MEDS: TRAMADOL 50 MG TABLET PO PRN (08:09)
[2016-11-26] MEDS: CHOLECALCIFEROL 5,000 UNIT CAPSULE PO SCH (08:09)
[2016-11-26] MEDS: ASPIRIN *EC* 81mg TABLET PO SCH (08:09)
[2016-11-26] MEDS: POLYETHYL.GLYCOL 3350 PACKET 17gm PO SCH (08:10)
[2016-11-26] MEDS: AMIODARONE 200 MG TABLET PO SCH (08:10)
[2016-11-26] MEDS: FUROSEMIDE 80 MG TABLET PO SCH ×2 (08:10→17:02)
--- NOTE | 2016-11-26 11:11 | NUR ---
Discomfort Pt was reporting some discomfort to Rt shoulder, requested to get Aspercreme for her discomfort. Received an order from Rosalinda Tafoya APRN for Aspercreme BID PRN.
[2016-11-26] MEDS ORDERED: TROLAMINE SALICYLATE 85 GM TUBE TOP PRN (11:15)
--- NOTE | 2016-11-26 13:07 | PDIRUOPC ---
Overall Plan of Care Date DATE: 11/23/16 TIME: 1850 Pt initially evaluated and IPOC reviewed 11/23 at approx 1850, but inadvertantly not filled out until today. Relevant Changes Relevant Changes: No I have reviewed the patient's information and concur with the finding and results of the pre-admission screen. Certification I certify the patient for rehabilitation. Patient Impairments Prior Medical Conditions: (1) Myopathy Additional Information: improvement over weekend, increased mobility, still needs to improve stamina. Cont with PT and OT plan (2) Atrial fibrillation Status: Chronic Additional Information: medical management. (3) Pelvis fracture, right Status: Acute Additional Information: Weight bearing per ortho, pt improving mobility. Current Medical Conditions: (1) Myopathy Additional Information: improvement over weekend, increased mobility, still needs to improve stamina. Cont with PT and OT plan (2) Atrial fibrillation Status: Chronic Additional Information: medical management. (3) Pelvis fracture, right Status: Acute Additional Information: Weight bearing per ortho, pt improving mobility. Medical Prognosis Fair IRF Tx That Should Address Dx: (1) Pelvis fracture, right (2) Distal radius fracture, right (3) Myopathy Dx Requiring Medical FU: (1) Pelvis fracture, right (2) Atrial fibrillation (3) Renal insufficiency (4) CHF (congestive heart failure) Vital Signs Vital Signs Date Time Temp Pulse Resp B/P Pulse Ox O2 Delivery O2 Flow Rate FiO2 11/26/16 08:00 98.7 88 16 124/70 98 Room Air Anticipated Interventions The patient requires inpatient IRF care for PT, OT, and/or ST for residuals remaining from pelvic fx, radius fracture and myopathy resulting in muscular weakness and strength deficits. ROM Deficit: Right Upper Extremity, Right Lower Extremity, Left Upper Extremity Strength Deficits: Right Upper Extremity, Right Lower Extremity, Left Upper Extremity FIM Scores Ambulation Distance: 377 Ambulation Ability: 5 Supervision/Setup Ambulation Assistance Needed: 1 Person Stair Assistance Needed: 1 Person Number of Stairs: 6 Eating Ability-FIM: 5 Supervision/Setup Grooming Ability: 5 Supervision/Setup Bathing Ability: 5 Supervision/Setup Upper Body Dressing Ability: 4 Minimal Assistance Lower Body Dressing Ability: 6 Modified [place] Lower Body Dressing Assistance: 1 Person Toileting Ability: 5 Supervision/Setup Toileting Assistance Needed: 1 Person Bed Transfer Ability: 5 Supervision/Setup Bed Transfer Assistance Needed: 1 Person Chair Transfer Ability: 6 Modified [place] Chair Transfer Assistance Need: 1 Person Overall Wheelchair Transfer Ab: 5 Supervision/Setup Overall Toilet / Commode Trans: 5 Supervision/Setup Toilet / Commode Transfer Assi: 1 Person Tub / Shower Transfer Ability: 5 Supervision/Setup Tub / Shower Transfer [place]: 1 Person Comprehension Ability: 7+ Complete [place] Social Interaction: 7+ Complete [place] Problem Solvin+ Complete [place] Expression Ability: 7+ Complete [place] Memory: 6 Modified [place] Current Functional Status Failed Alternative Therapy: Yes, Arrived from acute care Patient Requires * Patient has been determined to have significant functional limitations requiring at least two therapy disciplines. * Rehabilitation medical practitioner will provide admission approval, assessment and oversight and program coordination at least daily. * Intensive rehabilitative nursing services on site and available 24 hours a day. * The treatment plan will be developed within 24 hours of admission. * Interdisciplinary and goal oriented treatment by professional nursing, home health care social worker, and rehabilitation therapist. * Interdisciplinary team meeting weekly inclusive of ongoing comprehensive discharge planning. First team meeting by day seven. Weekly meetings to follow. * Rehab Physician is the team meeting leader. * Pharmacy and diagnostic services will be available. * Ongoing comprehensive rehab program with at least 2 disciplines and greater than or equal to 3 hours a day, 5 days a week. Limitations require: limited mobility, ADL impairment Physical Therapy Minutes: 90 Occupational Therapy Minutes: 90 Therapy The patient is to receive therapy at least 5 days a week. PT Treatment Plan: Therapeutic Exercise, Gait Training, Functional Activities , Patient/Family Education, Balance/Proprioception Treatment Plan Frequency: five times per week Treatment Plan Duration: two weeks OT Treatment Plan: Cognitive Skills Develop., Ther. Exercise for ADL's, IADL' s OT Treatment Plan Frequency: five times per week OT Treatment Plan Duration: three weeks Anticapted LOS/Outcomes Anticipated Functional Outcome Improvement to prefracture status Anticipated DC Destination: Home Health Service Home Safety Plan The patient will be provided with the development of a Home Safety Plan for return to a home or home-like environment and to ensure safety post discharge. Complicating Conditions Complications since IRF admit: (1) Myopathy Comments: improvement over weekend, increased mobility, still needs to improve stamina. Cont with PT and OT plan (2) Atrial fibrillation Status: Chronic Comments: medical management. (3) Pelvis fracture, right Status: Acute Comments: Weight bearing per ortho, pt improving mobility. Other Contributing Factors: Plan to Avoid Complications Barriers to Attaining Goals: weakness, balance, endurance, pain control Plan to Avoid Complications The patient cannot receive this care in a lesser intensive setting such as [facility] or Outpatient Therapy due to the patient requiring the following chronic renal failure, congestive heart failure The patient requires oversight by a rehabilitation physician to manage their rehabilitation treatment plan and the multidisciplinary approach to care that can only be provided in an IRF and requires a multidisciplinary approach to care , provided by professional PTs, OTs, STs, dieticians, RTs, rehabilitation nurses and is not available in lesser levels of care. The frequency and duration for therapy, as recommended by the professional Rehabilitation therapists, meet the patient's initial rehabilitation treatment plan needs and will be further evaluated on a weekly basis for progress and/or changes needed. Problem Qualifiers (1) Pelvis fracture, right: Encounter type: initial encounter Fracture type: closed Qualified Codes: S32.9XXA - Fracture of unspecified parts of lumbosacral spine and pelvis, initial encounter for closed fracture LANA ELDER MD Nov 26, 2016 13:06
--- NOTE | 2016-11-26 13:11 | PNPDOC ---
IRU Subjective Date DATE: 11/23/16 TIME: 1900 Pt initially seen and evaluated for progress note 11/23/2016 at approximately 1900. Note inadvertently not entered until today Subjective Some difficulty with using walker due to concern of humerus fracture. Patient believes she was told she had a proximal humerus "hairline fracture" but is unsure. She is cooperating with physical therapy and occupational therapy IRU Objective Vital Signs Vital signs Vital Signs Date Time Temp Pulse Resp B/P Pulse Ox O2 Delivery O2 Flow Rate FiO2 11/26/16 08:00 98.7 88 16 124/70 98 Room Air Height (Feet): 5 Height (Inches): 8.00 Weight (Kilograms): 76.900 General General Appearance: Alert, Orientated x 2 Respiratory (Brief) Respiratory: FOUND: clear all rodas, equal bilaterally Cardiovascular (Brief) Cardiac: FOUND: regular rate, regular rhythm Capillary Refill: <2 sec Musculoskeletal (Brief) Comments Up and moving with physical therapy assist. Significant pain and decreased range of motion and legs. Assessment & Plan Problems: (1) Myopathy Assessment & Plan: Physical therapy and occupational therapy are working with her . She is cooperating. Spoke with orthopedics, no humerus fracture. Therefore we can place her in a walker with arm support for weightbearing. (2) Atrial fibrillation Status: Chronic Assessment & Plan: Managed by medical (3) Pelvis fracture, right Status: Acute Qualifiers: Encounter type: initial encounter Fracture type: closed Qualified Codes: S32.9XXA - Fracture of unspecified parts of lumbosacral spine and pelvis, initial encounter for closed fracture Assessment & Plan: Stable, patient using walker, PT and OT to continue to work with her. DVT Prophylaxis: SCD'S Code Status Full Code Interventions to Obtain Goals PT Treatment Plan: Therapeutic Exercise, Gait Training, Functional Activities , Patient/Family Education, Balance/Proprioception OT Treatment Plan: Cognitive Skills Develop., Ther. Exercise for ADL's, IADL' s Hospital Course Summary Disclaimer The hospital course summary below is not to be considered part of the above Progress Note. LANA ELDER MD Nov 26, 2016 13:11
--- NOTE | 2016-11-26 13:14 | PNPDOC ---
IRU Subjective Date DATE: 11/26/16 TIME: 13:11 Subjective Patient seen today on her way to cafeteria. She was walking with walker and physical therapy assistance. She is showing improvement in strength, working with physical therapy and occupational therapy. IRU Objective Vital Signs Vital signs Vital Signs Date Time Temp Pulse Resp B/P Pulse Ox O2 Delivery O2 Flow Rate FiO2 11/26/16 08:00 98.7 88 16 124/70 98 Room Air Height (Feet): 5 Height (Inches): 8.00 Weight (Kilograms): 76.900 General General Appearance: Alert, Orientated x 2 Respiratory (Brief) Respiratory: FOUND: clear all rodas, equal bilaterally Cardiovascular (Brief) Cardiac: FOUND: regular rate, regular rhythm Assessment & Plan Problems: (1) Myopathy Assessment & Plan: Patient showed improvement over the weekend. Improved balance in particular. Continue with PT and OT, reevaluated team meeting on Saturday. (2) Atrial fibrillation Status: Chronic Assessment & Plan: No irregularity heard today. Medical to manage. (3) Pelvis fracture, right Status: Acute Qualifiers: Encounter type: initial encounter Fracture type: closed Qualified Codes: S32.9XXA - Fracture of unspecified parts of lumbosacral spine and pelvis, initial encounter for closed fracture Assessment & Plan: Pain is managed, patient is working with physical therapy and occupational therapy, continue with current plan of care. Code Status Full Code Interventions to Obtain Goals PT Treatment Plan: Therapeutic Exercise, Gait Training, Functional Activities , Patient/Family Education, Balance/Proprioception OT Treatment Plan: Cognitive Skills Develop., Ther. Exercise for ADL's, IADL' s Hospital Course Summary Disclaimer The hospital course summary below is not to be considered part of the above Progress Note. LANA ELDER MD Nov 26, 2016 13:14
--- NOTE | 2016-11-26 15:19 | PNPDOC ---
DARIA LIMA V CARGO TRIMMER 11/26/16 1519: Subjective Date DATE: 11/26/16 TIME: 15:15 Subjective Henna is seen several times throughout the day. She is ambulating well with the assistance of a walker. She does reports having some right posterior muscle discomfort likely from overuse of the right shoulder. Objective Vital Signs Vital signs Vital Signs Date Time Temp Pulse Resp B/P Pulse Ox O2 Delivery O2 Flow Rate FiO2 11/26/16 08:00 98.7 88 16 124/70 98 Room Air Height (Feet): 5 Height (Inches): 8.00 Weight (Kilograms): 76.900 General General Appearance: Alert, Orientated x 3, Cooperative, No Acute Distress Eyes (Brief) Eyes: FOUND: EOMI ENMT (Brief) ENMT: FOUND: mucosa moist, normal dentition, NOT FOUND: pharnyx erythema Neck (Brief) Neck: FOUND: midline, NOT FOUND: adenopathy, carotid bruits, tracheal deviation Respiratory (Brief) Respiratory: FOUND: clear all rodas, equal bilaterally, NOT FOUND: wheezes Cardiovascular (Brief) Cardiac: FOUND: murmur Capillary Refill: <2 sec Abdomen (Brief) Abdominal: FOUND: BS normo active x4, soft, NOT FOUND: distended, tender Extremities (Brief) Extremity : Side: Right Extremity: hand Extremity Finding: FOUND: edema (mild) Lymphatic (Brief) Lymphatic: NOT FOUND: adenopathy Musculoskeletal (Brief) Musculoskeletal: NOT FOUND: tenderness Integumentary (Brief) Integumentary: FOUND: dry, pink, warm Neurologic (Brief) Neurological: FOUND: cranial 2-12 intact Psychiatric (Brief) Psychiatric: FOUND: alert, attentive, normal affect, oriented Assessment & Plan Problems: (1) Pelvis fracture, right Status: Acute Qualifiers: Encounter type: initial encounter Fracture type: closed Qualified Codes: S32.9XXA - Fracture of unspecified parts of lumbosacral spine and pelvis, initial encounter for closed fracture Assessment & Plan: Right superior/inferior pubic rami fractures. (2) Distal radius fracture, right Status: Acute Qualifiers: Fracture type: closed (3) Chronic anticoagulation Status: Chronic Assessment & Plan: Xarelto (4) CHF (congestive heart failure) Status: Chronic (5) Osteopenia Status: Chronic (6) Atrial fibrillation Status: Chronic (7) DJD (degenerative joint disease) Status: Chronic (8) CAD (coronary artery disease) Status: Chronic (9) HTN (hypertension) Status: Chronic Plan/Intensity of Service 11/26/16 Continue to work with PT and OT for ongoing strengthening. May use Aspercreme topically for muscle aches. Continue with diuretic 80 milligrams twice a day Xarelto 20 milligrams daily for chronic anticoagulation given history of atrial fibrillation Tramadol, Percocet as needed for pain control. Code Status Full Code Hospital Course Summary Disclaimer The hospital course summary below is not to be considered part of the above Progress Note. Hospital Course Summary 11/26/16 Continue to work with PT and OT for ongoing strengthening. May use Aspercreme topically for muscle aches. Continue with diuretic 80 milligrams twice a day Xarelto 20 milligrams daily for chronic anticoagulation given history of atrial fibrillation Tramadol, Percocet as needed for pain control. RAUDEL LOCKETT MD 11/26/16 1930: Assessment & Plan Assessment I have independently evaluated and examined this patient. I reviewed the chart, the patient's history, and the CARGO TRIMMER's documented findings as above. We discussed and formulated the assessment and plan as above with additions as below: Doing well. Denies chest pain or dyspnea. Pain well-controlled. Regular rhythm, lungs clear. No edema of the right hand but some residual bruising on the dorsal surface. Ambulating with platform walker. Anticipate discharge soon. DARIA LIMA APRN Nov 26, 2016 15:19 RAUDEL LOCKETT MD Nov 26, 2016 19:30
[2016-11-26 15:30] VITALS: BP 116/67; PULSE 75; RESP 18; TEMP 97.8; O2SAT 96
--- NOTE | 2016-11-26 16:03 | NUR ---
CM SPOKE WITH PT, RE: DC PLANNING. REVIEWED HER DC PLAN OF HOME WITH SPOUSE AND [place]ON IN [place]. EXPLAINED WE DON'T HAVE A DC DATE YET. REVIEWED IRU POC; SHE SIGNED IT WITH NO QUESTIONS/CONCERNS. SHE SAID HER WILL PICK HER UP WHEN SHE IS RELEASED.
[2016-11-26] MEDS ORDERED: RIVAROXABAN 20 MG TABLET PO SCH (17:30)
[2016-11-26 19:21] VITALS: BP 109/65; PULSE 76; RESP 16; TEMP 98.1; O2SAT 96
--- NOTE | 2016-11-26 19:46 | NUR ---
Shift Summary Pt is resting in bed at this time. Ambulates well with assist of 1, FWW, and gait belt. Reported discomfort this morning, received Tramadol 50mg (2) at 0809 which did help her discomfort. Has been continent this shift, able to manage her own clothing and cares. Ate well for meals, did not need assist with her tray, ambulated to the dining room. Worked well with therapy this shift. Alert and oriented to person, place, and time. When in bed or the chair the alarm is in use and call light is within reach.
--- NOTE | 2016-11-26 23:31 | NUR ---
Shift Note Pt. gets out of bed independently. Stand-by assist of one, walker, gait belt to bathroom and back to bed tonight. Pt. mobility notably improved since last week.
--- NOTE | 2016-11-26 23:43 | NUR ---
Chart Check 24 hour chart check completed
[2016-11-27] MEDS: ACETAMINOPHEN 325 MG TABLET PO SCH ×2 (02:56→08:53)
--- NOTE | 2016-11-27 07:17 | NUR ---
Shift Note Slept overnight. Declined 0300 Tylenol. Denies pain this morning.
[2016-11-27 08:38] VITALS: BP 122/69; PULSE 70; RESP 16; TEMP 98.4; O2SAT 94
[2016-11-27] MEDS: ZINC 50 MG PO SCH (08:50)
[2016-11-27] MEDS: CYANOCOBALAMIN (B-12) 500mcg TABLET PO SCH (08:50)
[2016-11-27] MEDS: CHOLECALCIFEROL 5,000 UNIT CAPSULE PO SCH (08:50)
[2016-11-27] MEDS: AMIODARONE 200 MG TABLET PO SCH (08:51)
[2016-11-27] MEDS: ASPIRIN *EC* 81mg TABLET PO SCH (08:51)
[2016-11-27] MEDS: CARVEDILOL 25 MG TABLET PO SCH (08:51)
[2016-11-27] MEDS: DOCUSATE SODIUM 100 MG CAPSULE PO SCH (08:51)
[2016-11-27] MEDS: FUROSEMIDE 80 MG TABLET PO SCH (08:51)
[2016-11-27] MEDS: POLYETHYL.GLYCOL 3350 PACKET 17gm PO SCH (08:53)
--- NOTE | 2016-11-27 10:27 | NUR ---
CM THIS WORKER VISITED PT, DISCUSSED D/C PLAN FOR TODAY. PT WAS AGREEABLE AND "READY TO GO HOME". PT STATED HER WOULD PICK HER UP. THIS WORKER REVIEWED IM LETTER WITH PT, PT WAS AGREEABLE AND SIGNED. THIS WORKER DISCUSSED THE PLATFORM WALKER THAT SHE WOULD BE NEEDING, PT STATED SHE WOULD BE ABLE TO POST ANESTHESIA CARE UNIT NURSE THE PLATFORM WALKER IN [place]. THIS WORKER FAXED ORDERS AND PRESCRIPTION TO [facility] AT [phone] FOR THE PLATFORM WALKER. Addendum: 11/27/16 at 1036 by DIALLO DELGADO Amended: Links added. Addendum: 11/27/16 at 1136 by DIALLO DELGADO THIS WORKER CALLED PT'S CALLIE AT [phone]. LEFT A VOICEMAIL THAT DISCHARGE WILL BE AT 2:30-3:00PM AND WILL BE ABLE TO PICK HER UP THEN. Addendum: 11/27/16 at 1328 by DIALLO DELGADO MET WITH PT'S AND REVIEWED PLATFORM WALKER IS READY FOR POST ANESTHESIA CARE UNIT NURSE AT [facility] IN [place]. PT'S HAD NO QUESTIONS. THIS WORKER UPDATED PT'S NURSE ON THIS.
[2016-11-27] MEDS ORDERED: CARV25TA2 PO (11:17)
[2016-11-27] MEDS ORDERED: RIVA20TA PO (11:17)
[2016-11-27] MEDS ORDERED: CYAN50003 PO (11:17)
[2016-11-27] MEDS ORDERED: TRAM50TA53 PO (11:17)
[2016-11-27] MEDS ORDERED: OXYC-541 PO (11:17)
[2016-11-27] MEDS ORDERED: ZINC50TA39 PO (11:17)
--- NOTE | 2016-11-27 11:31 | DSPDOC ---
General Date Date DATE: 11/27/16 TIME: 11:29 Attending Physician Lana Elder MD Admitting Physician Lana Elder MD Consulting Physician Prasanth Cotton MD Admitting Diagnosis pelvic fracture Discharge Diagnosis Pelvic fx, radius fx, Atrial fibrillation Coronary artery disease Hypertension History of Present Illness 76 yo female with pubic ramus fracture and radius fracture which occurred on . She was unable to manage pain at home adn had to be admitted by ortho. SHe ultimately could not manage adl's due to the pain, was referred to IRU for evaluation. Hospital Course 11/26/16 Continue to work with PT and OT for ongoing strengthening. May use Aspercreme topically for muscle aches. Continue with diuretic 80 milligrams twice a day Xarelto 20 milligrams daily for chronic anticoagulation given history of atrial fibrillation Tramadol, Percocet as needed for pain control. 11/27/16 Pt was admitted with PT and OT consult to help with pain management, strength and stability. Pt has cooperated with staff and shown appropriate improvement. She is planning on D/C home with Platform walker today. Pain controlled with Oxycodone prn. Follow up with ortho in 2 weeks. Cont with PT and OT as outpatient or home health. Problems: (1) Pelvis fracture, right Status: Acute Assessment & Plan: Right superior/inferior pubic rami fractures. (2) Distal radius fracture, right Status: Acute (3) Chronic anticoagulation Status: Chronic Assessment & Plan: Xarelto (4) CHF (congestive heart failure) Status: Chronic (5) Osteopenia Status: Chronic (6) Atrial fibrillation Status: Chronic (7) DJD (degenerative joint disease) Status: Chronic (8) CAD (coronary artery disease) Status: Chronic (9) HTN (hypertension) Status: Chronic Code Status Full Code Home Meds Active Scripts Tramadol HCl (Ultram) 50 Mg Tablet, 50-100 MG PO QID Y for PAIN, #60 TAB Prov:LANA ELDER MD 11/27/16 Zinc (Zinc) 50 Mg Tablet, 50 MG PO DAILY for 30 Days, #30 TAB Prov:LANA ELDER MD 11/27/16 Carvedilol (Carvedilol) 25 Mg Tablet, 1 TAB PO BID for 30 Days, #60 TAB BEST WITH FOOD. Prov:LANA ELDER MD 11/27/16 Oxycodone HCl/Acetaminophen (Oxycodone-Acetaminophen 5-325) 5-325 Tablet, 1-2 TAB PO Q4H Y for PAIN for 10 Days, #60 TAB Prov:LANA ELDER MD 11/27/16 Cyanocobalamin (Vitamin B-12) (Vitamin B-12) 5,000 Mcg Tab.rapdis, 1 TAB PO DAILY for 30 Days, #30 TAB Prov:LANA ELDER MD 11/27/16 Rivaroxaban (Xarelto) 20 Mg Tablet, 1 TAB PO DAILY, #30 TAB 11 Refills Prov:LANA ELDER MD 11/27/16 Furosemide (Furosemide) 80 Mg Tablet, 1 TAB PO BID, #180 TAB 3 Refills Prov:DARIA LIMA APRN 11/22/16 Polyethylene Glycol 3350 (Healthylax) 17 Gm Powd.pack, 17 G PO DAILY, #30 PACKET Prov:ZACH GARCIA 11/21/16 Acetaminophen (Tylenol) 325 Mg Tablet, 650 MG PO Q6HR, #100 TAB Prov:ZACH GARCIA 11/21/16 Reported Medications Cholecalciferol (Vitamin D3) (Vitamin D) 5,000 Unit Capsule, 1 TAB PO DAILY 11/20/16 Amiodarone HCl (Amiodarone HCl) 200 Mg Tablet, 200 MG PO DAILY, TAB 11/20/16 Aspirin (Aspir 81) 81 Mg Tablet.dr, 1 TAB PO DAILY, #30 TAB 5 Refills 11/20/16 Hydroxyzine HCl (Hydroxyzine HCl) 25 Mg Tablet, 1 TAB PO PM, TAB 11/20/16 Discontinued Reported Medications Enalapril Maleate (Enalapril Maleate) 20 Mg Tablet, 1 TAB PO BID, TAB 11/20/16 Furosemide (Furosemide) 80 Mg Tablet, 1 TAB PO BID, #180 TAB 3 Refills 11/20/16 Face to Face Encounter I met with patient on the day of dismissal and discussed follow up appointments , medications, and safety plan. Discharge Disposition Home with home health. LANA ELDER MD Nov 27, 2016 11:31
--- NOTE | 2016-11-27 14:23 | NUR ---
DISCHARGE NOTE PT WAS DISCHARGED IN STABLE CONDITION. MEDICATIONS WERE GONE OVER WITH PT. PT DENIED NEED FOR ULTRAM AND PERCOCET SCRIPTS. PT WAS CALLED AND TOLD THE DATE AND TIME OF THE PCP FOLLOW-UP APPOINTMENT BY JOSIAS TAYLOR CNA. PT WAS GIVEN ADDRESS OF THE MEDICAL EQUIPMENT STORE TO [employer] PLATFORM WALKER. PT WAS ASSISTED TO PERSONAL VEHICLE VIA WHEELCHAIR BY THIS RN. PERSONAL ITEMS WERE BROUGHT TO CAR BY STAFF BUSINESS TEST ANALYST. MANILLA ENVELOPE WITH DISCHARGE INSTRUCTIONS AND SCRIPTS WERE GIVEN TO PT'S .
--- NOTE | 2016-11-27 15:25 | NUR ---
SHIFT SUMMARY PT HAS BEEN PLEASANT AND COOPERATIVE. HAS BEEN OUT TO DINING ROOM FOR MEALS. AMBULATES WITH FWW AND GAIT BELT. PT REFUSED BATH THIS MORNING. PT REQUIRED NO ASSISTANCE TO DRESS. PT DOES OCCASIONALLY USE HAND RAIL OR WALKER TO STAND.
== END 2016-11-27 14:34 | disposition home or self-care (01) | DRG 561 ==
PROVIDERS: ADMIT Family Medicine; ATTEND Family Medicine
DX: S32.591D Other specified fracture of right pubis, subsequent encounter for fracture with routine healing (principal); S52.501D Unspecified fracture of the lower end of right radius, subsequent encounter for closed fracture with routine healing; G72.9 Myopathy, unspecified; I48.2 Chronic atrial fibrillation; I11.0 Hypertensive heart disease with heart failure; I50.9 Heart failure, unspecified; I25.10 Atherosclerotic heart disease of native coronary artery without angina pectoris; M85.80 Other specified disorders of bone density and structure, unspecified site; M19.91 Primary osteoarthritis, unspecified site; X58.XXXD Exposure to other specified factors, subsequent encounter; Z79.82 Long term (current) use of aspirin; Z79.01 Long term (current) use of anticoagulants; Z95.0 Presence of cardiac pacemaker
CPT/HCPCS: 36415; 80048; 85025